=== PATIENT | male | born 1955 | race Caucasian/White ===

== ENCOUNTER → 2017-02-01 | Outpatient (CLI) | payer OTHER ==
[~2017-02-01] MED LIST: ASCA500 PO; LEVO125T7 PO; LISI20TA3 PO; LISI20TA55 PO; MULT-506 PO; PANT40TA PO; VITAMIN B COMPLEX PO
--- NOTE | 2017-02-01 18:21 | DIAGNOSTIC IMAGING REPORT ---
CT SCAN OF THE ABDOMEN AND PELVIS WITHOUT IV CONTRAST CLINICAL HISTORY: Lower abdominal pain. COMPARISON STUDY: Abdominal CT dated 07/10/2010. TECHNIQUE: CT scan of the abdomen and pelvis is performed from the lung bases to the proximal femora. Images are reviewed in the axial, sagittal, and coronal planes. IV contrast was not administered for this examination as per the referring clinician. Note that the examination was performed in suboptimal fashion without IV contrast. Oral contrast was utilized. Automated dose control exposure was utilized. CT DOSE: 767.48 mGy.cm FINDINGS: Lung bases: The heart is normal in size and without pericardial effusion. The lung bases are clear. Liver: The unenhanced liver is mildly enlarged measuring 18.5 cm in length. The Liver demonstrates diffusely diminished attenuation consistent with mild hepatic steatosis. Fatty sparing is seen adjacent to gallbladder fossa. There is no intrahepatic biliary ductal dilatation. Gallbladder: Unremarkable. Spleen: Normal in size and attenuation. Pancreas: Moderately atrophic and grossly unremarkable. Adrenal glands: Unremarkable. Kidneys: The unenhanced kidneys demonstrate mild cortical atrophy and are without hydronephrosis. There are no renal calculi identified. There is no evidence of contour deforming renal mass lesion. Abdominal vasculature: The abdominal aorta is normal in course and caliber noting scattered foci of atherosclerotic calcification. Bowel: Findings are consistent with previous sigmoid colon resection with colocolonic anastomosis. No bowel obstruction is seen. There is moderate diverticulosis of the remaining left colon. There is wall thickening with associated pericolonic inflammation and fluid involving the distal descending/proximal sigmoid colon consistent with acute diverticulitis. No evidence of abscess is seen on this unenhanced examination. The appendix is not identified and reported surgically absent. Peritoneum: There is no intraperitoneal free air or abdominal ascites. There is a fat-containing umbilical hernia. Lymphadenopathy: None. Pelvic viscera: The bladder, prostate, and seminal vesicles are normal as visualized. Skeletal structures: No lytic or blastic lesions are seen. IMPRESSION: 1. Suboptimal examination without IV contrast. 2. There is moderate diverticulosis of the remaining left colon with evidence of acute diverticulitis involving the distal descending/proximal sigmoid. No intraperitoneal free air is seen and there is no evidence of diverticular abscess. 3. There are postoperative changes consistent with partial sigmoid colon resection with colocolonic anastomosis. No bowel obstruction is identified. 4. Mild hepatomegaly and hepatic steatosis. 5. Additional findings as above. Electronically signed by: Patrick Lindsay M.D. 02/01/2017 6:20 PM Dictated Date/Time: 02/01/2017 6:13 PM
== END | disposition home or self-care (01) ==
LOC: C.CTS 15:40
PROVIDERS: ATTEND Family Medicine
DX: R10.30 Lower abdominal pain, unspecified (principal); Z90.49 Acquired absence of other specified parts of digestive tract

== ENCOUNTER → 2018-02-27 | Day surgery (SDC) | payer SELFPAY ==
[2018-02-11 13:36] VITALS: Ht 175.3 cm; Wt 95.5 kg
[~2018-02-27] VITALS: Ht 175.3 cm; Wt 95.5 kg
[~2018-02-27] MED LIST changes: -ASCA500 PO; +ATOR10TA82 PO; +LEVO125T5 PO; -LEVO125T7 PO; +OMEG10007 PO
== END | disposition home or self-care (01) ==
LOC: EDSTATUS 07:00 → C.PAT 16:22
PROVIDERS: ATTEND Orthopaedic Surgery
DX: G56.22 Lesion of ulnar nerve, left upper limb (principal); Z53.9 Procedure and treatment not carried out, unspecified reason

== ENCOUNTER 2021-03-02 05:14 | Observation (INO) ==
--- NOTE | 2021-02-06 14:21 | Anesthesiology Consultation ---
Date of Service February 06, 2021 Assessment & Plan Chart Review Chart Review: Acceptable Risk for Surgery and Patient NOT seen in Pre Admission Testing Consults Requested none History Surgery Operation Date: 03/02/21 13:55 Proposed Procedures p Right Knee Poly Exchange, Synovectomy - Johan Whalen MD Height/Weight Height: 5 ft 9 in Weight: 97.522 kg Allergies Allergy/AdvReac Type Severity Reaction Status Date / Time No Known Allergies Allergy Verified 02/06/21 11:29 Medications Home Medications Medication Instructions Recorded Confirmed Last Taken [place] 3-6-9 1 dose PO DAILY 07/31/18 02/06/21 08/20/18 05:30 amoxicillin 500 mg PO UD PRN 07/31/18 02/06/21 Unknown atorvastatin 10 mg PO PM 07/31/18 02/06/21 08/20/18 17:30 levothyroxine 125 mcg PO QAM 07/31/18 02/06/21 08/21/18 05:00 lisinopril 20 mg PO QPM 07/31/18 02/06/21 08/20/18 18:00 lisinopril-hydrochlorothiazide 1 tab PO QAM 07/31/18 02/06/21 08/20/18 05:30 multivitamin 1 tab PO QAM 07/31/18 02/06/21 08/20/18 05:30 pantoprazole 40 mg PO QAM 07/31/18 02/06/21 08/21/18 05:00 vitamin B complex 1 tab PO QAM 07/31/18 02/06/21 08/20/18 05:30 Past Medical History Medical History Borderline high cholesterol Bradycardia has followed up with kathy dumas and did cardiac work up and neg findings Diverticular disease GERD (gastroesophageal reflux disease) Hearing deficit [place] Hypertension Hypothyroidism Obesity Osteoarthritis Exercise / Class Metabolic Activity III < 4 Walking/Shop/Light housework Past Family History Family History Uncle Family history of diabetes mellitus Past Surgical History Surgical History History of appendectomy History of colectomy 14 inches removed per patient, 2/2 diverticulitis. History of colonoscopy History of surgery on arm RT History of tonsillectomy History of total knee replacement RT S/P cubital tunnel release HX RIGHT AND LEFT Past Anesthesia History No Hx of Anesthesia Complications and No Family Hx of Anesthesia Complications History of PONV No Hx of PONV and No Hx of Motion Sickness Social History Smoking Status: Never smoker tobacco type: smokeless tobacco Do You Dip or Chew Tobacco: Yes (advised) Hx Alcohol Use: Yes Alcohol type: beer alcohol intake frequency: 0-2 drinks per day Hx Substance Use: No substance use type: does not use Testing Electrocardiogram Date: 11/30/20 Findings: + SB @ (at 46) Echocardiogram Date: 01/04/21 EF: 60% LV Function: normal RWMA: + none Other Findings: + LVH (mild) and + diastolic dysfunction (grade 1) Valvular Disease: + no significant valvular disease, + MR (mild) and + pertinent finding (mild TR) Stress Test Type: nuclear (lexiscan) Findings: + WNL
--- NOTE | 2021-03-01 20:30 | History & Physical Report ---
Date of Service March 01, 2021 Assessment & Plan (1) Instability of right knee joint: Plan: Right knee pain and instability due to a fractured polyethylene post. Treatment options discussed and patient would like to proceed with surgical intervention. Risks, benefits and alternatives to surgery including but not limited to infection, DVT, pain, stiffness, need for revision surgery, damage to blood vessels, damage to nerves, PE, , were discussed with the patient and they wish to proceed. Plan on right total knee poly exchange at [facility] on 03/02/21. Will plan on ASA 81mg BID x 1 mo post op for DVT prophylaxis, as well as outpatient PT post discharge. All questions answered. F/u post op. History of Present Illness Chief Complaint: Right knee pain Primary Care Provider: Marleen Blas, DO 65 year old male with PMHx significant for HTN, bradycardia, GERD, hypothyroidism who presents with right knee pain and instability since suffering a fall. He is about 10 years s/p right total knee arthroplasty. Exam consistent with a fracture polyethylene post. He would like to proceed with surgical intervention. Patient denies headaches, sweats, fevers, chills, double vision, blurred vision, cough, sore throat, dysphagia, chest pain, sob, wheezing, n/v/d/c, numbness, tingling, fatigue, urinary symptoms, mood disorders. ROS positive for right knee pain and stiffness. Allergies Allergy/AdvReac Type Severity Reaction Status Date / Time No Known Allergies Allergy Verified 02/06/21 11:29 Home Medications Medication Instructions Recorded Confirmed Type amoxicillin 500 mg tablet 500 mg PO UD PRN 07/31/18 02/06/21 History atorvastatin 10 mg tablet 10 mg PO PM 07/31/18 02/06/21 History fish, borage, flaxseed oils-omega 1 dose PO DAILY 07/31/18 02/06/21 History 3,6,9 comb no.1 1,200 mg capsule ([place] 3-6-9) levothyroxine 125 mcg tablet 125 mcg PO QAM 07/31/18 02/06/21 History lisinopril 20 mg tablet 20 mg PO QPM 07/31/18 02/06/21 History lisinopril 20 1 tab PO QAM 07/31/18 02/06/21 History mg-hydrochlorothiazide 25 mg tablet multivitamin 1 tab PO QAM 07/31/18 02/06/21 History pantoprazole 40 mg tablet,delayed 40 mg PO QAM 07/31/18 02/06/21 History release vitamin B complex 1 tab PO QAM 07/31/18 02/06/21 History Past Med/Surg History Medical History Borderline high cholesterol Bradycardia has followed up with kathy dumas and did cardiac work up and neg findings Diverticular disease GERD (gastroesophageal reflux disease) Hearing deficit [place] Hypertension Hypothyroidism Obesity Osteoarthritis Surgical History History of appendectomy History of colectomy 14 inches removed per patient, 2/2 diverticulitis. History of colonoscopy History of surgery on arm RT History of tonsillectomy History of total knee replacement RT S/P cubital tunnel release HX RIGHT AND LEFT Family History Uncle Family history of diabetes mellitus Social History Smoking Status: Never smoker Second Hand Exposure: No; Hx Alcohol Use: Yes Alcohol type: beer Hx Substance Use: No Preferred Language: Uzbek Communication Ability: Effective Defense Attorney Required: No Beliefs That Will Affect Care: None Current Living Situation: Spouse and Family Feels Safe at Home: Yes Assistive Devices: Glasses Review of Systems All systems reviewed & are unremarkable except as noted in HPI & below Physical Exam Constitutional: well developed and well nourished; no acute distress Eyes: PERRL, conjunctivae normal, anicteric sclerae ENMT: external ear and nose normal, oropharynx normal Neck: trachea midline, no thyromegaly Respiratory: normal respiratory effort, lungs clear to auscultation Cardiovascular: RRR, no murmur, no edema Musculoskeletal: Right knee: Moderate effusion. Mild laxity with valgus and varus stress, positive posterior drawer. ROM 0-120. When knee flexed past 110 degrees there is a visible and palpable clunk in the knee and again with extension consistent with fractured post and posterior knee instability. Skin: no rashes, warm and dry Neurologic: patellar DTR's 2+ bilat, sensation intact Psychiatric: A+Ox3, euthymic affect Results & Data ([facility]) Diagnostic Findings Right knee radiographs: 3 views right knee including AP, lateral, and patellar x-rays reviewed and shows total knee which appears well aligned and well fixed. There may be some lateral patellar wear on the patellar x-ray
[2021-03-02] MEDS ORDERED: METOCLOPRAMIDE HCL 10 MG TABLET PO SCH (06:00)
[2021-03-02] MEDS ORDERED: dexAMETHasone 4 MG TAB PO SCH (06:00)
[2021-03-02] MEDS ORDERED: ceFAZolin 2000MG 2,000 MG/15 ML SYR IV SCH (06:00)
[2021-03-02] MEDS ORDERED: CeleBREX 200 MG CAP PO SCH ×2 (06:00→21:00)
[2021-03-02] MEDS ORDERED: TRANEXAMIC ACID 1,000 MG **IV Pre-op IV SCH (06:00)
[2021-03-02] MEDS ORDERED: FAMOTIDINE 20 MG TAB PO SCH (06:00)
[2021-03-02] MEDS ORDERED: TRANEXAMIC ACID 1,000 MG **IV Intra-op IV SCH (06:00)
[2021-03-02] MEDS ORDERED: GABAPENTIN 600 MG DOSE PO SCH (06:00)
[2021-03-02] MEDS ORDERED: ROPIVACAINE 0.5% HCL/PF 150 MG, BUPIVACAINE 0.75% MPF 20 ML, EPINEPHrine 30MG/30ML (OR ... INFIL SCH (06:00)
[2021-03-02] MEDS ORDERED: ACETAMINOPHEN 500 MG TAB PO SCH (06:00)
[2021-03-02] MEDS ORDERED: ROPIVACAINE 0.5% 5 MG/ML 30 ML VIAL ONE (06:19)
[2021-03-02] MEDS ORDERED: BUPIVACAINE 0.5 % 5 MG/1 ML PF 10ML VIAL ONE (06:19)
[2021-03-02] MEDS ORDERED: EPINEPHrine INJ 1 MG/ML AMP ONE (06:19)
[2021-03-02] MEDS ORDERED: MIDAZOLAM HCL 1 MG/ML 2ML VIAL ONE (06:37)
[2021-03-02] MEDS ORDERED: fentaNYL citrate 100 MCG/2 ML VIAL ONE (06:37)
--- NOTE | 2021-03-02 06:45 | History & Physical Bridge Note ---
Date of Service March 02, 2021 History & Physical Bridge Note I have examined the patient, reviewed the History & Physical and in the interval since the performance of the History & Physical I have noted the following changes of clinical significance: no changes noted
[2021-03-02] MEDS ORDERED: PROPOFOL IV EMULSION 10 MG/ML 20 ML VIAL IV ONE (07:14)
[2021-03-02] MEDS ORDERED: ONDANSETRON INJ 2 MG/ML 2 ML VIAL ONE (07:14)
[2021-03-02] MEDS ORDERED: LIDOCAINE 2% 2 ML VIAL/AMP(20MG/ML) INFIL ONE (07:14)
[2021-03-02] MEDS ORDERED: KETAMINE 50 MG/5 ML SYRINGE ONE (07:16)
[2021-03-02] MEDS ORDERED: ORTHO JOINT ANESTHETIC ONE (07:26)
[2021-03-02] MEDS ORDERED: PHENYLEPHRINE 100MCG/ML 5ML SYR IV PRN (07:45)
[2021-03-02] MEDS ORDERED: ONDANSETRON INJ 2 MG/ML 2 ML VIAL IV PRN ×2 (07:45→09:59)
[2021-03-02] MEDS ORDERED: ATROPINE SULFATE 0.1 MG/ML 10ML SYR IV PRN (07:45)
[2021-03-02] MEDS ORDERED: ePHEDrine sulfate 50 MG/ML AMP IV PRN (07:45)
[2021-03-02] MEDS ORDERED: LABETALOL HCL IV 5 MG/ML 20ML IV PRN (07:45)
[2021-03-02] MEDS ORDERED: fentaNYL citrate 100 MCG/2 ML VIAL IV PRN (07:45)
--- NOTE | 2021-03-02 08:27 | Post Operative Brief Note ---
Immediate Post Op Note v1 Date of Surgery March 02, 2021 Pre & Post Diagnosis Operation Date: 03/02/21 07:00 Pre-Op Diagnosis: Instability of Right Knee Joint status post right total knee replacement with fracture of polyethylene post and chronic synovitis Post-Op Diagnosis: Instability right knee joint status post right total knee replacement with fracture polyethylene post and chronic synovitis with Heterotopic bone around right patella. I identified the patient and participated in the time-out.: Yes Procedure Operation Date: 03/02/21 07:00 Actual Procedures p Right Knee Poly Exchange tibial component, electrocautery synovectomy, excision heterotopic bone around patella- Johan Whalen MD Surgeon Johan Whalen MD Speed Winder Brandon WATKINS Estimated Blood Loss 5 Findings Consistent with Post-Op Diagnosis Specimens Polyethylene post with fracture tibial polyethylene component Drains Hemovac Drain Anesthesia Type MAC Spinal Regional Complications none Disposition Accompanied Patient To Recovery: No Disposition: Recovery Room Overlapping Procedure I was immediately available: during the entire case.
--- NOTE | 2021-03-02 09:08 | XRay Report ---
XR knee RT 1 or 2V routine HISTORY: 65 years-old Male Surgical Post Op right knee total joint arthroplasty COMPARISON: None TECHNIQUE: 2 views of the right knee FINDINGS: Right knee total joint arthroplasty and patella resurfacing. Surgical drainage catheters noted along with expected postoperative soft tissue swelling and deep tissue air with anterior midline skin stapl es. No unexpected opaque foreign bodies. No acute fracture. IMPRESSION: Right knee total joint arthroplasty and patella resurfacing with expected postoperative c hanges. ACT 112: Negative or not required by law. The above report was generated using voice recognition software. It may contain grammatical, syntax o r spelling errors. Electronically signed by: Gigi Bowles M.D. 03/02/2021 9:07 AM
--- NOTE | 2021-03-02 09:24 | Anesthesiology Progress Note ---
Date of Service March 02, 2021 Anesthesia Post Procedure Vital Signs Vital Signs: Temp Pulse Pulse Resp BP BP Pulse Ox 03/02/21 09:15 46 L 16 105/67 95 03/02/21 09:05 36.3 C L 45 L 16 112/66 95 03/02/21 08:55 48 L 16 111/64 95 03/02/21 08:45 36.2 C L 48 L 16 105/59 L 96 03/02/21 05:32 36.6 C 51 L 18 173/102 H 96 Transfer of Care Handoff Completed per policy Notes Mental Status: alert / awake / arousable Patient Amnestic to Procedure: Yes Nausea / Vomiting: adequately controlled Pain: adequately controlled Airway Patency, RR, SpO2: stable & adequate BP & HR: stable & adequate Hydration State: stable & adequate Neuraxial Anesthesia: was administered and sensory block is resolving Anesthetic Complications: no major complications apparent and Pt Satisfied with anesthetic care
[2021-03-02] MEDS ORDERED: NALOXONE HCL 0.4 MG/1 ML VIAL/CARP IV PRN (09:59)
[2021-03-02] MEDS ORDERED: bisacodyL 10 MG SUPP PR PRN (09:59)
[2021-03-02] MEDS ORDERED: MULTIVITAMIN TAB PO SCH (09:59)
[2021-03-02] MEDS ORDERED: TAMSULOSIN HCL 0.4 MG CAP PO PRN (09:59)
[2021-03-02] MEDS ORDERED: oxyCODONE HCL IR 5 MG TAB (IMMEDIATE RELEASE) PO PRN (09:59)
[2021-03-02] MEDS ORDERED: METOCLOPRAMIDE HCL INJ 5 MG/ML 2 ML VIAL IV PRN (09:59)
[2021-03-02] MEDS ORDERED: LISINOPRIL/HCTZ 20/25MG 1 TAB PO SCH (09:59)
[2021-03-02] MEDS ORDERED: MAGNESIUM HYDROXIDE SUSP 30 ML UDC PO PRN (09:59)
[2021-03-02] MEDS ORDERED: HYDROmorphone INJ 0.5 MG/0.5 ML SYR IV PRN (09:59)
--- NOTE | 2021-03-02 10:27 | Operative Report (OR) ---
DATE OF PROCEDURE: 03/02/2021 INDICATIONS FOR THE PROCEDURE: The patient is a 65-year-old male who had a index right total knee re placement 10 years ago. He did well for many years and then developed instability in his knee recent ly with swelling and pain. His exam is consistent with a fracture of the polyethylene post. Serum m arkers are negative for any signs of infection. Radiographs demonstrate a well-aligned Goff and BMdr hew Journey I total knee replacement with no evidence of any loosening. PREOPERATIVE DIAGNOSIS: Fractured polyethylene post, status post right knee replacement with chronic synovitis and instability. POSTOPERATIVE DIAGNOSIS: Fractured polyethylene post, status post right knee replacement with chroni c synovitis and instability including heterotopic bone around the patella. PROCEDURE: Right knee tibial polyethylene exchange of a total knee replacement including electrocaut dariela synovectomy and excision of heterotopic bone around the patella, application of superficial wound VAC. SURGEON: Johan Whalen MD. FRENCH INSTRUCTOR: Ephraim Bain PA-C. ANESTHESIA: Spinal MAC regional. DRAINS: 2 Hemovacs. ESTIMATED BLOOD LOSS: 5 mL. COMPLICATIONS: None. DESCRIPTION OF OPERATIVE PROCEDURE: The patient was taken to the operating room, anesthetized under spinal MAC regional anesthetic. Pneumatic tourniquet was placed on his right upper thigh. Right low er extremity was prepped and draped in sterile fashion. Right knee exam demonstrated he had a large effusion, no erythema, no increased warmth, no signs of infection. He had hyperextension of the knee , varus/valgus instability with stress, full range of motion and instability of the post with posteri or stress. Right lower extremity was prepped and draped with ChloraPrep. Leg was elevated, exsangui nated with an Esmarch bandage, pneumatic tourniquet was raised to 325 mmHg. Incision was made anteriorly through his old scar. Skin was incised sharply. Subcutaneous flaps wer e elevated. Incision was made through the medial retinaculum, carried up into the mid third of quadr iceps tendon and down to the medial tibial tubercle. There was a benign-appearing effusion that was evacuated. Intra-articular findings demonstrated that the polyethylene post was fractured. The frag ment was scarred in the superior lateral suprapatellar pouch area of the knee toward the lateral gutt er area. The polyethylene itself had some moderate wear. Patella had mild polyethylene wear, it was stable and intact. The metal components were all intact. They were all stable. There was chronic synovitis in the knee. No signs of infection. The tip of the polyethylene post wa s removed. Then, I did an electrocautery synovectomy removing the thickened and inflamed synovium in both the gutters and suprapatellar pouch area. Then, we gained exposure to the knee with appropriat e retractors in place and then removed the tibial polyethylene uneventfully. This gave us a little m ore exposure to remove some scar tissue in the lateral gutter area and excised the scarred patellar f at pad and then everted the patella, and there was some heterotopic bone around the patella superiorl y and laterally and some of the lateral bone of the patella that was lateral was bevelled off to prev ent any impingement on the femoral condyle and the heterotopic bone was resected with a rongeur. After this was completed, I did a trial reduction and the 11 insert, which was upsized 2 sizes from t he original 9, gave stability in full range of motion. There was no hyperextension. Trial polyethyl daljit was removed. Betadine soak was performed. Then, the knee was copiously irrigated again with pul sed saline solution. Then, the Journey II right size 11 revision tibial polyethylene for a size 7 ti bial implant was inserted with the insertion device. After further irrigation, 2 Hemovac drains were brought out laterally. We did inject Orthomix cocktail through the soft tissues and capsular tissue s prior to placement of the implant. We did irrigate after Orthomix was placed. The quadriceps tendon and medial retinaculum were then closed with interrupted [id number] #1 Bertrand ryl sutures. Knee was taken through full range of motion, repair was secure. The patient had 0 thro ugh 135 degrees range of motion. There is no instability. The subcutaneous tissues were closed with interrupted 2-0 Vicryl suture, skin closed with irvin and a JULIAN and Acticoat superficial wound VA C was applied. Ephraim Bain was my certified surgical first assistant. His functions were significant throughout the procedure. He assisted in soft tissue retraction, leg positioning and instrument management during the procedure willa marmolejo performed the subcutaneous and skin closure, application of superficial wound VAC and will particip ate in the postoperative care of the patient. Job ID: [id number]
--- NOTE | 2021-03-02 10:52 | Hospitalist Consultation ---
Date of Consultation March 02, 2021 Assessment & Plan (1) S/P right knee surgery: This is a 65 yo M with a PMH of HTN, bradycardia, hypothyroidism, h/o NSVT on monitor and other medical problems listed below who is POD #0 s/p Right knee tibial polyethylene exchange of a total knee replacement by Dr. Whalen. POD #0 s/p Right knee tibial polyethylene exchange of a total knee replacement by Dr. Whalen Per ortho for pain control, wound care, anticoagulation and activities Monitor H&H, continue incentive spirometry, PT/OT when appropriate (2) Hypertension: Normotensive Plan to continue lisinopril 20mg BID, hold HCTZ tomorrow AM until volume status and lab work reassessed (3) Bradycardia: Asymptomatic - following with [facility] (4) NSVT (nonsustained ventricular tachycardia): Recent Zio monitor results showed asymptomatic V-tach runs with longest being 9 beats, appearing to be wide complex with aberrancy as outpatient - asymptomatic Following with [id number] [facility] HR 52, asymptomatic post-operatively Continue to monitor (5) Hypothyroidism: Continue levothyroxine PCP: [facility] Dispo: Per primary service Patient seen in collaboration with Dr. Fuchs. Please see addendum. Supervising Physician Co-Signing Physician Notes I saw this patient with the physician library services assistant, I participated in the history, physical, review of systems, and physical exam on this consult. I reviewed the medications with the patient and the physician library services assistant and helped reconcile the medications. I helped take a detailed family and social history as well. I formulated the assessment and plan personally with the physician library services assistant and went over it with the patient. ROS-No Headache, No Visual Changes, No Nausea, No Vomiting, No Fever, No Chills, No Neck Pain or Stiffness, No Chest Pain, No Palpitations, No SOB, No YORK, No Cough, No Sputum, No Wheezing, No Abdominal Pain, No Diarrhea, No Hematemesis, No Hemoptysis, No Unexpected Weight Loss, No Flank pain, No Melena, No Hematochezia, No Frequency, No Urgency, No Burning, No Hematuria, No Rashes, No Diaphoresis. Appetite is Normal, Sore R Knee Physical Exam Gen-AAO x 3, NAD, Afebrile Head-NCAT, EOMI, PERRLA, Anicteric Sclera, No Posterior Pharyngeal Erythema Neck-Supple, No JVD, No Thyromegaly, No Masses, No LAD, No Bruits Lungs-Clear to Auscultation Bilaterally, No Rales, No Rhonchi, No Wheezing, No Crepitus Chest-No S4, +S1, +S2, No S3, No Murmurs, No Rubs, No Gallops, No Ectopy Abdomen-Soft, Bowel Sounds Present, Non Tender, Non Distended, No Hepatomegaly, No Splenomegaly, No Palpable Masses, No Rebound, No Rigidity, No Guarding Musculoskeletal-No CVAT Extremities-No Cyanosis, No Clubbing, No Edema, Ice Pack R Knee Nuero-Cranial Nerves II-XII grossly intact, Motor WNL, DTRs WNL, Strength WNL, Non Focal Psych-Normal Mood History of Present Illness Reason for Consultation: post op med mgmt Attending Physician: Johan Whalen MD History of Present Illness This is a 65 yo M with a PMH of HTN, bradycardia, hypothyroidism, h/o NSVT on monitor and other medical problems listed below who is POD #0 s/p Right knee tibial polyethylene exchange of a total knee replacement by Dr. Whalen. Patient is feeling well postoperatively. Denies any right knee pain due to effect of remaining anesthesia. Denies any fever, chills, lightheadedness, headache, chest pain, shortness of breath, nausea, vomiting, abdominal pain. Has been resting comfortably since surgery. Has not eaten yet. Has not urinated postoperatively. Is taking all medications as scheduled. PCP is Dr. Blas of [facility]. Also underwent cardiac preop clearance prior to surgery for history of asymptomatic bradycardia. Zio monitor results showed asymptomatic V-tach runs with longest being 9 beats, appearing to be wide complex with aberrancy. Underwent nuclear stress test negative for inducible ischemia. Echo revealed normal wall motion with EF of 60 to 64%. Allergies Allergy/AdvReac Type Severity Reaction Status Date / Time No Known Allergies Allergy Verified 02/06/21 11:29 Home Medications Medication Instructions Recorded Confirmed Type amoxicillin 500 mg tablet 500 mg PO UD PRN 07/31/18 03/02/21 History atorvastatin 10 mg tablet 10 mg PO PM 07/31/18 03/02/21 History fish, borage, flaxseed oils-omega 1 dose PO DAILY 07/31/18 03/02/21 History 3,6,9 comb no.1 1,200 mg capsule ([place] 3-6-9) levothyroxine 125 mcg tablet 125 mcg PO QAM 07/31/18 03/02/21 History lisinopril 20 mg tablet 20 mg PO QPM 07/31/18 03/02/21 History lisinopril 20 1 tab PO QAM 07/31/18 03/02/21 History mg-hydrochlorothiazide 25 mg tablet multivitamin 1 tab PO QAM 07/31/18 03/02/21 History pantoprazole 40 mg tablet,delayed 40 mg PO QAM 07/31/18 03/02/21 History release vitamin B complex 1 tab PO QAM 07/31/18 03/02/21 History Patient History Medical History Borderline high cholesterol Bradycardia has followed up with kathy dumas and did cardiac work up and neg findings Diverticular disease GERD (gastroesophageal reflux disease) Hearing deficit [place] Hypertension Hypothyroidism NSVT (nonsustained ventricular tachycardia) on OP monitor, asymptomatic Obesity Osteoarthritis Surgical History History of appendectomy History of colectomy 14 inches removed per patient, 2/2 diverticulitis. 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 Physical Exam Physical Exam: General Appearance: WD/WN, vitals as above, NAD, sitting up in bed, pleasant, conversing easily Head: normocephalic, atraumatic Eyes: normal inspection, PERRL, conjunctivae normal, anicteric sclerae ENT: external ear and nose normal, oropharynx normal Neck: normal visual inspection, trachea midline, no thyromegaly Respiratory: normal respiratory effort, lungs clear to auscultation, no wheeze, rales, rhonchi. No accessory muscle use Cardiovascular: regular rate, rhythm, no murmur, normal peripheral pulses, no BLE edema. Vessels: no JVD Chest: normal inspection of chest Abdomen/GI: normal bowel sounds, soft, nontender, no hepatosplenomegaly Extremities/Musculoskeletal: R knee with surgical dressing c/d/i. Drains visualized. No cyanosis or clubbing, extremities motor strength 5/5 Neurologic: PERRL, EOMI, accommodation nl, no face palsy, no dysarthria, CN's II-XI intact bilaterally and moves all extremities Psychiatric: A+Ox3, euthymic affect Skin: no rashes, normal color, warm/dry Results & Data Results & Data ([facility]) Vital Signs (Past 12 Hours) Vital Signs Temp Pulse Pulse Resp BP BP Pulse Ox 03/02/21 10:40 47 L 16 141/94 H 99 03/02/21 10:06 36.3 C L 46 L 16 133/89 93 03/02/21 09:35 36.3 C L 42 L 16 133/83 95 03/02/21 09:15 46 L 16 105/67 95 03/02/21 09:05 36.3 C L 45 L 16 112/66 95 03/02/21 08:55 48 L 16 111/64 95 03/02/21 08:45 36.2 C L 48 L 16 105/59 L 96 03/02/21 05:32 36.6 C 51 L 18 173/102 H 96 Diagnostic Findings Knee X-Ray 03/02/21 08:49 XR knee RT 1 or 2V routine HISTORY: 65 years-old Male Surgical Post Op right knee total joint arthroplasty COMPARISON: None TECHNIQUE: 2 views of the right knee FINDINGS: Right knee total joint arthroplasty and patella resurfacing. Surgical drainage catheters noted along with expected postoperative soft tissue swelling and deep tissue air with anterior midline skin irvin. No unexpected opaque foreign bodies. No acute fracture. IMPRESSION: Right knee total joint arthroplasty and patella resurfacing with expected postoperative changes. ACT 112: Negative or not required by law. The above report was generated using voice recognition software. It may contain grammatical, syntax or spelling errors. Electronically signed by: Gigi Bowles M.D. 03/02/2021 9:07 AM
[2021-03-02] MEDS: SODIUM CHLORIDE 0.9% 1000ML 1,000 ML IV SCH ×2 (13:15→20:23)
[2021-03-02] MEDS: PANTOprazole 40 MG TAB PO SCH (13:16)
[2021-03-02] MEDS: CeleBREX 200 MG CAP PO SCH ×2 (13:16→20:22)
[2021-03-02] MEDS: VITAMIN B COMPLEX TAB PO SCH (13:16)
[2021-03-02] MEDS: MULTIVITAMIN TAB PO SCH (13:16)
[2021-03-02] MEDS: ASPIRIN 81 MG ECTAB PO SCH ×2 (13:16→20:22)
[2021-03-02] MEDS: DOCUSATE SODIUM 100 MG CAP PO SCH ×2 (13:16→20:22)
[2021-03-02] MEDS: ACETAMINOPHEN 500 MG TAB PO SCH ×2 (13:16→23:03)
[2021-03-02] MEDS: ceFAZolin 2000MG 2,000 MG/15 ML SYR IV SCH ×2 (16:06→23:03)
[2021-03-02] MEDS: lisinopril 20 MG TAB PO SCH (20:22)
[2021-03-02] MEDS ORDERED: SENNA 8.6 MG TAB PO SCH (21:00)
[2021-03-02] MEDS ORDERED: ATORVASTATIN 10 MG TAB PO SCH (21:00)
[2021-03-03] MEDS: SODIUM CHLORIDE 0.9% 1000ML 1,000 ML IV SCH (05:53)
[2021-03-03] MEDS: ACETAMINOPHEN 500 MG TAB PO SCH (05:53)
[2021-03-03] MEDS ORDERED: LEVOTHYROXINE SODIUM 125 MCG TABLET PO SCH (06:30)
[2021-03-03 06:38] LABS: Hematocrit (blood only) 36.8 % (42-52); Hemoglobin 12.9 g/dL (14.0-18.0); Mean Corpuscular Hemoglobin 30.6 pg (25-34); Mean Corpuscular Hgb Conc 35.1 g/dL (32-36); Mean Corpuscular Volume 87.2 fL (80-100); Platelet Count 247 K/uL (130-400); RDW Coefficient of Variation 13.1 % (11.5-14.5); RDW Standard Deviation 42.1 fL (36.4-46.3); Red Blood Count 4.22 M/uL (4.7-6.1); White Blood Count 17.26 K/uL (4.8-10.8)
[2021-03-03 07:10] LABS: BUN Creatinine Ratio 19.2 (10-20); Calcium 8.7 mg/dl (8.5-10.1); Creatinine Clr Calc Pharmacy 96.1 ml/min; Est GFR (African American) 103.6 ml/min; Est GFR (Non-African American) 89.4 ml/min; Potassium 3.8 mmol/L (3.5-5.1)
--- NOTE | 2021-03-03 07:36 | Orthopedic Progress Note ---
Date of Service March 03, 2021 Assessment & Plan (1) Instability of right knee joint: Plan: POD#1 right knee poly exchange and synovectomy -PT/OT -DVT prophylaxis-SCDs, TEDs, ASA 81mg BID -Pain management as written -AM labs-hemoglobin 12.9 from 15 preop acute blood loss anemia due to surgical loss vs dilutional effect. Leukocytosis likely reactive due to surgical stress/perioperative steroids -D/C planning-home with outpatient PT. Plan on discharge home today if PT goes well. Admission and Anticipated Discharge Date Admission Date: March 02, 2021 Subjective Patient is POD#1 right knee Poly exhchange. Doing well, pain controlled. No current complaints. Denies chest pain, sob, dizziness, fever, chills, n/v/d Review of Systems Review of Systems: All systems reviewed & are unremarkable except as noted in Subjective Physical Exam Physical Exam: Dressing to right knee is c/d/i. Hemovac and Sarah intact and functioning. No calf tenderness. Toes mobile with good calf strength. Distally n/v status and sensation intact. Constitutional: well developed and well nourished; no acute distress Results & Data ([facility]) Vital Signs (Past 12 Hours) Vital Signs Temp Pulse Resp BP BP Pulse Ox 03/03/21 03:02 36.4 C L 57 L 16 130/79 96 03/02/21 22:21 36.6 C 57 L 16 142/81 H 96 03/02/21 20:25 36.6 C 54 L 18 96 03/02/21 20:18 144/87 H
[2021-03-03] MEDS: PANTOprazole 40 MG TAB PO SCH (08:44)
[2021-03-03] MEDS: VITAMIN B COMPLEX TAB PO SCH (08:44)
[2021-03-03] MEDS: CeleBREX 200 MG CAP PO SCH (08:45)
[2021-03-03] MEDS: MULTIVITAMIN TAB PO SCH (08:45)
[2021-03-03] MEDS: ASPIRIN 81 MG ECTAB PO SCH (08:45)
[2021-03-03] MEDS: DOCUSATE SODIUM 100 MG CAP PO SCH (08:45)
[2021-03-03] MEDS: lisinopril 20 MG TAB PO SCH (08:45)
[2021-03-03] MEDS ORDERED: lisinopril 20 MG TAB PO SCH (21:00)
--- NOTE | 2021-03-04 22:05 | Discharge Summary ---
Date of Service March 04, 2021 Admission HPI Per Admitting Provider 65 year old male with PMHx significant for HTN, bradycardia, GERD, hypothyroidism who presents with right knee pain and instability since suffering a fall. He is about 10 years s/p right total knee arthroplasty. Exam consistent with a fracture polyethylene post. He would like to proceed with surgical intervention. Patient denies headaches, sweats, fevers, chills, double vision, blurred vision, cough, sore throat, dysphagia, chest pain, sob, wheezing, n/v/d/c, numbness, tingling, fatigue, urinary symptoms, mood disorders. ROS positive for right knee pain and stiffness. Admission Exam Per Admitting Provider Constitutional: well developed and well nourished; no acute distress Eyes: PERRL, conjunctivae normal, anicteric sclerae ENMT: external ear and nose normal, oropharynx normal Neck: trachea midline, no thyromegaly Respiratory: normal respiratory effort, lungs clear to auscultation Cardiovascular: RRR, no murmur, no edema Musculoskeletal: Right knee: Moderate effusion. Mild laxity with valgus and varus stress, positive posterior drawer. ROM 0-120. When knee flexed past 110 degrees there is a visible and palpable clunk in the knee and again with extension consistent with fractured post and posterior knee instability. Skin: no rashes, warm and dry Neurologic: patellar DTR's 2+ bilat, sensation intact Psychiatric: A+Ox3, euthymic affect Principal Diagnosis right knee polyethylene post fracture Discharge Exam Constitutional well developed and well nourished; no acute distress Eyes PERRL, conjunctivae normal, anicteric sclerae ENMT external ear and nose normal, oropharynx normal Neck trachea midline, no thyromegaly Respiratory normal respiratory effort, lungs clear to auscultation Cardiovascular RRR, no murmur, no edema Skin no rashes, warm and dry Neurologic patellar DTR's 2+ bilat, sensation intact Psychiatric A+Ox3, euthymic affect Discharge Data Allergies Allergy/AdvReac Type Severity Reaction Status Date / Time No Known Allergies Allergy Verified 02/06/21 11:29 Consultations Hospitalist Procedures Performed Operation Date: 03/02/21 07:00 Actual Procedures p Right Knee Poly Exchange, Synovectomy(Right) - Johan Whalen MD Ordered Studies 03/02/21 05:00 US - OR guided needle placemen Routine Hospital Course (1) Instability of right knee joint: Patient presented for same day admission following right knee poly exchange and synovectomy on 03/02/21. He tolerated procedure well. The Patient had an uneventful hospital course. Post-operatively, his activity was progressed and well tolerated. They participated in PT with ambulation distance of 75 feet x 2. ROM of operative knee reached 100 degrees. Labs remained stable- lowest hemoglobin recorded: 12.9. Dr. Gene Fuchs of medical service was consulted for medical management during admission. Pain controlled on oral medications. Please refer to daily progress notes and PT notes for complete details. After exam on 03/03/21, patient was felt to be stable for discharge home with outpatient PT. Patient will f/u in the office in about 2 weeks for further evaluation including x-rays and incision check, sooner if having any issues or concerns. POD#1 right knee poly exchange and synovectomy -PT/OT -DVT prophylaxis-SCDs, TEDs, ASA 81mg BID -Pain management as written -AM labs-hemoglobin 12.9 from 15 preop acute blood loss anemia due to surgical loss vs dilutional effect. Leukocytosis likely reactive due to surgical stress/perioperative steroids -D/C planning-home with outpatient PT. Plan on discharge home today if PT goes well. Lab Results 03/02/21 03/02/21 03/02/21 Range/Units 05:43 06:02 06:02 WBC (4.8-10.8) K/uL RBC (4.7-6.1) M/uL Hgb (14.0-18.0) g/dL Hct (42-52) % MCV (80-100) fL MCH (25-34) pg MCHC (32-36) g/dL RDW Std Deviation (36.4-46.3) fL RDW Coeff of Jing (11.5-14.5) % Plt Count (130-400) K/uL MPV (7.4-10.4) fL Sodium (136-145) mmol/L Potassium (3.5-5.1) mmol/L Chloride (98-107) mmol/L Carbon Dioxide (21-32) mmol/L Anion Gap (3-11) BUN (7-18) mg/dl Creatinine (0.6-1.4) mg/dl Est Cr Clr Drug Dosing ml/min Est GFR ( Amer) ml/min Est GFR (Non-Af Amer) ml/min BUN/Creatinine Ratio (10-20) Glucose (70-99) mg/dl Calcium (8.5-10.1) mg/dl COVID-19 Eval Order Covid19 IDNow [facility] SARS-CoV-2, RNA, NAAT NEGATIVE (NEGATIVE) Blood Type O Positive Antibody Screen NEGATIVE 03/03/21 03/03/21 Range/Units 06:19 06:19 WBC 17.26 H (4.8-10.8) K/uL RBC 4.22 L (4.7-6.1) M/uL Hgb 12.9 L (14.0-18.0) g/dL Hct 36.8 L (42-52) % MCV 87.2 (80-100) fL MCH 30.6 (25-34) pg MCHC 35.1 (32-36) g/dL RDW Std Deviation 42.1 (36.4-46.3) fL RDW Coeff of Jing 13.1 (11.5-14.5) % Plt Count 247 (130-400) K/uL MPV 10.0 (7.4-10.4) fL Sodium 137 (136-145) mmol/L Potassium 3.8 (3.5-5.1) mmol/L Chloride 105 (98-107) mmol/L Carbon Dioxide 29 (21-32) mmol/L Anion Gap 3.0 (3-11) BUN 18 (7-18) mg/dl Creatinine 0.91 (0.6-1.4) mg/dl Est Cr Clr Drug Dosing 96.1 ml/min Est GFR ( Amer) 103.6 ml/min Est GFR (Non-Af Amer) 89.4 ml/min BUN/Creatinine Ratio 19.2 (10-20) Glucose 175 H (70-99) mg/dl Calcium 8.7 (8.5-10.1) mg/dl COVID-19 Eval Order SARS-CoV-2, RNA, NAAT (NEGATIVE) Blood Type Antibody Screen Total Time Total Time Spent Total Time Spent (In Minutes): 20 Discharge Plan Discharge Items Patient Disposition: Home - Self-Care Reason For Visit: RIGHT KNEE FRACTURE Discharge Diagnosis: Right knee polyethylene post fracture Activity: Per Instructions section Non-emergency contact: Surgeon Call non-emergency contact if: you have any medication questions, your pain is worsening, your pain is unusual for you, your pain is concerning for you, you have a fever, your temperature is above 101, your wound has increased redness and your wound has increased drainage Follow-up/Referrals: Marleen Blas DO [Primary Care Provider] - Diet: Regular Addtl Attending Provider Instructions: ACTIVITY RECOMMENDATIONS: SELF CARE INSTRUCTIONS AFTER TOTAL KNEE REPLACEMENT A. You may need to continue a physical therapy program after discharge from the hospital. There are several options available to you. Your doctor will assist you in selecting the best one for you. 1. An out-patient facility 2 to 3 times a week for therapy or home therapy. 2. Continue working on all exercises taught to you in the hospital. Your goals should be to increase bending of your knee to 90 degrees and beyond and to fully straighten your knee. B. You may progress at your own pace from walking with a walker or crutches to a cane; then to no assistive devices. C. Make walking a part of your daily routine. Be up as much as comfortable with rest periods throughout the day. Rest with leg elevation is very important. Use the ice wrap frequently for the first 3-4 weeks. D. There are no restrictions on activities. You may ride in a car, shop, participate in insights manager and all social activities. E. Wear the long elastic stockings (ANGÉLICA hose) 20 hours a day for 2 weeks after surgery. They can be removed several times a day for laundering and for a bath. F. You may shower, no tub baths until cleared by your doctor. SPECIAL CARE INSTRUCTIONS: VERY IMPORTANT TO READ AND REVIEW A. There are a few signs you need to watch for after you are home. Call [facility] if you notice any of the followin. Increased severe knee pain. Some pain is expected especially when you exercise. 2. Increased swelling in your leg or knee; pain or swelling of the calf muscle in either lower leg. 3. Any fluid drainage from the incision. 4. Shortness of breath or chest pain. B. Please call [facility] at if you have any concerns or questions about your operation or recovery. The doctor or his nurse will return your call promptly. C. You must take antibiotics before dental work, bladder, bowel or other surgery. Your doctor will provide you with a permanent care to carry describing this precaution. IMPORTANT: * REMEMBER TO TAKE ASPIRIN, 81 MG, TWICE DAILY FOR 4 WEEKS UNLESS OTHERWISE DIRECTED. THIS IS YOUR BLOOD THINNER. * HIGH RISK PATIENTS MAY BE PRESCRIBED A STRONGER BLOOD THINNER. THIS WILL BE PROVIDED AT DISCHARGE. * CALL IF INCREASED PAIN, REDNESS, DRAINAGE OR FEVER GREATER THAT 101. * WEAR ANGÉLICA HOSE 20 HOURS PER DAY FOR 2 WEEKS. This is a large suction dressing covering your incision. This will help pull any excess drainage from the wound and allow your incision to heal properly. You may shower with this if you can keep the unit outside of the shower. If any bleeding or leakage is noted please call your doctor's office. This will remain on your incision for 7 days and then should be removed. This can be done yourself or by the home nursing staff if applicable. The entire unit is disposable once removed. Once removed, keep incision clean and dry. If redness or drainage is noted, please call your surgeon. IF INCISION IS LEAKING THROUGH DRESSING, CALL THE OFFICE . FOLLOW UP VISIT: If appointment is not already scheduled: Please call [facility] to make a follow-up appointment for 2 weeks after your surgery at . Stand-Alone Forms: My [facility], Opioid Pain Management, Smoking Cessation Medications and DC Order Prescriptions: New acetaminophen [Tylenol Extra Strength] 500 mg Tablet 1,000 mg PO Q8 Qty: 60 RF: 0 aspirin 81 mg Tablet,Delayed Release (Dr/Ec) 81 mg PO BID Qty: 60 RF: 0 celecoxib [Celebrex] 200 mg Capsule 200 mg PO BID Qty: 60 RF: 0 oxycodone 5 mg Tablet 5 - 10 mg PO .Q4h-6h MDD 6 PRN (Reason: pain) Qty: 30 RF: 0 Continued multivitamin Tablet 1 tab PO QAM RF: 0 atorvastatin 10 mg Tablet 10 mg PO PM RF: 0 lisinopril 20 mg Tablet 20 mg PO QPM RF: 0 amoxicillin 500 mg Tablet 500 mg PO UD PRN (Reason: PRIOR TO DENTAL PROCEDURES ) RF: 0 pantoprazole 40 mg Tablet,Delayed Release (Dr/Ec) 40 mg PO QAM RF: 0 levothyroxine 125 mcg Tablet 125 mcg PO QAM RF: 0 lisinopril-hydrochlorothiazide 20-25 mg Tablet 1 tab PO QAM RF: 0 vitamin B complex Tablet 1 tab PO QAM RF: 0 Discontinued Fowler 3-6-9 1,200 mg Capsule 1 dose PO DAILY RF: 0 Discharge Orders: Discharge Order (Routine); Ordered 03/03/21 Ordered By: Ephraim Brownlee/Other Patient Handouts: DVT Post Op Prevention Admission Data Admit Date/Time: 03/02/21 08:49 Attending Provider: Johan Whalen Admit Provider: Johan Whalen Primary Care Provider: Marleen Blas Other Providers: Tano Melchor Other Interventions: Discharge Summary Assessment (RN) Last Done: 03/03/21 09:34
== END 2021-03-03 11:20 | disposition home or self-care (01) ==
LOC: PACUINP 05:14 → ASU 05:14 → 3E 09:35

== ENCOUNTER 2022-01-31 09:30 | Observation (INO) ==
--- NOTE | 2021-12-26 13:53 | PAT Medication Instructions ---
Medication Instructions Date of Service December 26, 2021 Home Medications amoxicillin 500 mg tablet 500 mg PO UD PRN atorvastatin 10 mg tablet 10 mg PO PM levothyroxine 125 mcg tablet 125 mcg PO QAM lisinopril 20 mg tablet 20 mg PO QPM lisinopril 20 mg-hydrochlorothiazide 25 mg tablet 1 tab PO QAM multivitamin 1 tab PO QAM pantoprazole 40 mg tablet,delayed release 40 mg PO QAM vitamin B complex 1 tab PO QAM Continue as directed amoxicillin 500 mg tablet 500 mg PO UD PRN(if needed) DO NOT take the morning of surgery lisinopril 20 mg-hydrochlorothiazide 25 mg tablet 1 tab PO QAM multivitamin 1 tab PO QAM vitamin B complex 1 tab PO QAM Take morning of surgery With a small sip of water, OTHERWISE NOTHING TO EAT OR DRINK AFTER MIDNIGHT: levothyroxine 125 mcg tablet 125 mcg PO QAM pantoprazole 40 mg tablet,delayed release 40 mg PO QAM Take evening before surgery atorvastatin 10 mg tablet 10 mg PO PM lisinopril 20 mg tablet 20 mg PO QPM Other Notes If you have any questions please call us at [phone] or [phone] or [phone] or [phone]
--- NOTE | 2021-12-29 08:54 | Anesthesiology Consultation ---
Date of Service December 29, 2021 Assessment & Plan (1) Encounter for pre-operative examination: - Patient scheduled for routine annual f/u appt with cardiology prior to surgery. Patient acceptable risk for surgery pending cardiology office visit note (01/26; [facility]). - COVID screening: Per assessment on 12/29: No known COVID-19 positive contacts or current COVID-19 related symptoms. Travel screen negative. Surgeon arranging preop COVID testing. Awaiting results. - S/P Right knee poly-exchange (03/02/21): SAB at L3/4 (x1 attempt) + PNB at [facility]. No issues per post-op anesthesia progress note. Chart Review Chart Review: Patient seen in Pre Admission Testing Teaching & Discussion Pre-Anesthesia Teaching/Discussion Notes: Instructed NPO after midnight before surgery,except medications with 15 cc of water. Medication instructions provided according to the PAT guidelines. History Surgery Operation Date: 01/31/22 12:15 Proposed Procedures p Left Total Knee Arthroplasty - Johan Whalen MD Height/Weight Height: 5 ft 9 in Weight: 98.4 kg Allergies Allergy/AdvReac Type Severity Reaction Status Date / Time No Known Allergies Allergy Verified 12/26/21 11:24 Medications Home Medications Medication Instructions Recorded Confirmed Last Taken amoxicillin 500 mg tablet 500 mg PO UD PRN 07/31/18 12/26/21 Unknown atorvastatin 10 mg tablet 10 mg PO PM 07/31/18 12/26/21 03/01/21 03:45 levothyroxine 125 mcg tablet 125 mcg PO QAM 07/31/18 12/26/21 03/02/21 03:45 lisinopril 20 mg tablet 20 mg PO QPM 07/31/18 12/26/21 03/01/21 18:00 lisinopril 20 1 tab PO QAM 07/31/18 12/26/21 03/01/21 05:30 mg-hydrochlorothiazide 25 mg tablet multivitamin 1 tab PO QAM 07/31/18 12/26/21 03/01/21 05:30 pantoprazole 40 mg tablet,delayed 40 mg PO QAM 07/31/18 12/26/21 03/01/21 05:30 release vitamin B complex 1 tab PO QAM 07/31/18 12/26/21 03/01/21 05:30 Past Medical History Medical History Bradycardia Diverticular disease GERD (gastroesophageal reflux disease) controlled Hearing deficit B/L DEWITT Hyperlipemia Borderline Hypertension Hypothyroidism NSVT (nonsustained ventricular tachycardia) 1 year ago, follows with [facility] cardio Osteoarthritis Exercise / Class Metabolic Activity II 4-5 Yardwork/Stairs/Walk up hill Past Family History Family History Uncle Family history of diabetes mellitus Past Surgical History Surgical History H/O knee surgery Right knee poly-exchange (03/02/21): SAB at L3/4 (x1 attempt) + PNB at [facility]. No issues per post-op anesthesia progress note. History of appendectomy History of colectomy 2011- inches removed per patient, 2/2 diverticulitis History of colonoscopy History of surgery on arm Right History of tonsillectomy History of total knee replacement Right S/P cubital tunnel release R/L Past Anesthesia History No Hx of Anesthesia Complications and No Family Hx of Anesthesia Complications History of PONV No Hx of PONV and No Hx of Motion Sickness Social History Smoking Status: Never smoker tobacco type: smokeless tobacco Do You Dip or Chew Tobacco: Yes (1 can/2 days > advised none DOS) Hx Alcohol Use: Yes Alcohol type: beer alcohol intake frequency: 0-2 drinks per day (2 beers/day) Hx Substance Use: No substance use type: does not use Review of Systems Patient denies chest pain, shortness of breath, dyspnea on exertion, fever, chills, cough, wheezing, palpitations. Physical Exam Vital Signs VITALS BP 145/78 P 47 TEMP 98.0 SP02 95%RA RESP 18 PHYSICAL Full cervical extension range of motion. Full TMJ range of motion. TMD 3.5 finger breaths Mallampati Score 2 Dentition: missing molar, + crowns Lungs: clear throughout to auscultation Cardiac: bradycardic, regular rhythm, no murmurs noted Spine: normal Carotid arteries: negative bruit Extremities: no edema Lab Results Anesthesia Preop Results Results Anesthesia Widget: WBC 5.64 K/uL (4.8-10.8) 12/29/21 Hgb 14.8 g/dL (14.0-18.0) 12/29/21 Hct 42.7 % (42-52) 12/29/21 Plt 244 K/uL (130-400) 12/29/21 Na 139 mmol/L (136-145) 12/29/21 K 4.9 mmol/L (3.5-5.1) 12/29/21 Cl 103 mmol/L (98-107) 12/29/21 CO2 31 mmol/L (21-32) 12/29/21 BUN 19 mg/dl (6-23) 12/29/21 Creat 0.89 mg/dl (0.6-1.4) 12/29/21 Glucose Level 130 mg/dl (70-99(Fasting)) H 12/29/21 PT 10.9 Seconds (9.0-12.0) 12/29/21 PTT 25.7 Seconds (21.0-31.0) 12/29/21 INR 1.0 (0.9-1.1) 12/29/21 HA1c 5.8 % (4.5-5.6) H 12/29/21 Urine Color Dark Yellow 12/29/21 Urine Appearance Clear (Clear) 12/29/21 Urine pH 5.0 (4.5-7.5) 12/29/21 Urine Specific [place] 1.017 (1.000-1.030) 12/29/21 Urine Protein Negative (Negative) 12/29/21 Urine Glucose (UA) Negative (Negative) 12/29/21 Urine Ketones Negative (Negative) 12/29/21 Urine Blood Negative (Negative) 12/29/21 Urine Nitrite Negative (Negative) 12/29/21 Urine Bilirubin Negative (Negative) 12/29/21 Urine Urobilinogen Negative (Negative) 12/29/21 Urine Leukocyte Esterase Negative (Negative) 12/29/21 Blood Type O Positive 12/29/21 Antibody Screen NEGATIVE 12/29/21 Testing Electrocardiogram Date: 12/29/21 Marked sinus bradycardia at 44bpm. 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 Chest X-Ray Date: 12/29/21 FINDINGS: Frontal and lateral radiographs of the chest demonstrate the cardiomed iastinal silhouette to be within normal limits. The lungs are clear of alveolar opacities. There is no evidence for effusion bilaterally. There is no evidence for vascular congestion. There is no acute osseous pathology. IMPRESSION: No acute cardiopulmonary disease. Echocardiogram Date: 01/04/21 LVEF 60-64%. Grade 1 diastolic dysfunction. Mild MR/TR. Stress Test Date: 01/04/21 Type: nuclear Lexiscan nuclear cardiac stress test negative for ischemia. Gated SPECT images reveal normal myocardial thickening and wall motion. LVEF 66%. 83% MPHR. Small apical lateral perfusion defect of mild intensityremaining LV myocardial wall segments demonstrate normal perfusion. Defect is unchanged when compared to resting images and likely represents normal apical thinning. No reversibility on quantitative analysis.
--- NOTE | 2022-01-30 19:23 | History & Physical Report ---
Date of Service January 30, 2022 Assessment & Plan (1) Primary osteoarthritis of left knee: Plan: Treatment options discussed with the patient. Patient has failed conservative measures and would like to proceed with knee replacement. Risks, benefits and alternatives to surgery including but not limited to infection, DVT, pain, stiffness, need for revision surgery, damage to blood vessels, damage to nerves, PE, , were discussed with the patient and they wish to proceed. Plan on left total knee arthroplasty at [facility] on 01/31/[address] Whalen. Plan on aspirin 81mg BID for 1 mo post op for DVT prophylaxis, outpatient PT. All questions answered. F/u post op. History of Present Illness Chief Complaint: Left knee pain Primary Care Provider: Marleen Blas, DO 65 year old male with PMHx significant for HTN, bradycardia, GERD, hypothyroidism who presents with left knee pain. Pain is interfering with his da theodore activities. He has failed conservative management. He would like to proceed with surgical intervention. Patient denies headaches, sweats, fevers, chills, double vision, blurred vision, cough, sore throat, dysphagia, chest pain, sob, wheezing, n/v/d/c, numbness, tingling, fatigue, urinary symptoms, mood disorders. ROS positive for left knee pain and stiffness. Allergies Allergy/AdvReac Type Severity Reaction Status Date / Time No Known Allergies Allergy Verified 12/26/21 11:24 Home Medications Medication Instructions Recorded Confirmed Type amoxicillin 500 mg tablet 500 mg PO UD PRN 07/31/18 12/26/21 History atorvastatin 10 mg tablet 10 mg PO PM 07/31/18 12/26/21 History levothyroxine 125 mcg tablet 125 mcg PO QAM 07/31/18 12/26/21 History lisinopril 20 mg tablet 20 mg PO QPM 07/31/18 12/26/21 History lisinopril 20 1 tab PO QAM 07/31/18 12/26/21 History mg-hydrochlorothiazide 25 mg tablet multivitamin 1 tab PO QAM 07/31/18 12/26/21 History pantoprazole 40 mg tablet,delayed 40 mg PO QAM 07/31/18 12/26/21 History release vitamin B complex 1 tab PO QAM 07/31/18 12/26/21 History Past Med/Surg History Medical History Bradycardia Diverticular disease GERD (gastroesophageal reflux disease) controlled Hearing deficit B/L DEWITT Hyperlipemia Borderline Hypertension Hypothyroidism NSVT (nonsustained ventricular tachycardia) 1 year ago, follows with [facility] cardio Osteoarthritis Surgical History H/O knee surgery Right knee poly-exchange (03/02/21): SAB at L3/4 (x1 attempt) + PNB at [facility]. No issues per post-op anesthesia progress note. History of appendectomy History of colectomy 2011- inches removed per patient, 2/2 diverticulitis History of colonoscopy History of surgery on arm Right History of tonsillectomy History of total knee replacement Right S/P cubital tunnel release R/L Family History Uncle Family history of diabetes mellitus Social History Smoking Status: Never smoker Second Hand Exposure: No; Hx Alcohol Use: Yes Alcohol type: beer Hx Substance Use: No Preferred Language: [place]arag[place] Communication Ability: Effective Seating Upholsterer Required: No Beliefs That Will Affect Care: None marital status: Current Living Situation: Spouse Feels Safe at Home: Yes Assistive Devices: Glasses and Hearing Aid - Bilateral Review of Systems All systems reviewed & are unremarkable except as noted in HPI & below Physical Exam Constitutional: well developed and well nourished; no acute distress Eyes: PERRL, conjunctivae normal, anicteric sclerae ENMT: external ear and nose normal, oropharynx normal Neck: trachea midline, no thyromegaly Respiratory: normal respiratory effort, lungs clear to auscultation Cardiovascular: RRR, no murmur, no edema Musculoskeletal: Left knee: Varus alignment. Moderate effusion. Crepitation with ROM. ROM 0-125 degrees. Positive Lu's. stable to valgus and varus stress test. Tender medial joint line. Skin: no rashes, warm and dry Neurologic: patellar DTR's 2+ bilat, sensation intact Psychiatric: A+Ox3, euthymic affect Results & Data ([facility]) Diagnostic Findings Left knee: Varus alignment. Bone on bone medial compartment. Tricompartmental degenerative changes.
[~2022-01-31 09:30] MED LIST changes: +ACETAMINOPHEN 500 MG TAB PO SCH; -ATOR10TA82 PO; +BUPIVACAINE 0.5 % 5 MG/1 ML PF 10ML VIAL ONE; +CeleBREX 200 MG CAP PO SCH; +EPINEPHrine INJ 1 MG/ML AMP ONE; +FAMOTIDINE 20 MG TAB PO SCH; +GABAPENTIN 600 MG DOSE PO SCH; -LEVO125T5 PO; -LISI20TA3 PO; -LISI20TA55 PO; +LR 500ML BOLUS, THEN 15ML/HR IV SCH; +METOCLOPRAMIDE HCL 10 MG TABLET PO SCH; -MULT-506 PO; -OMEG10007 PO; -PANT40TA PO; +ROPIVACAINE 0.5% 5 MG/ML 30 ML VIAL ONE; +ROPIVACAINE 0.5% HCL/PF 150 MG, BUPIVACAINE 0.75% MPF 20 ML, EPINEPHrine 30MG/30ML (OR ... INSTIL SCH; +TRANEXAMIC ACID 1,000 MG **IV Intra-op IV SCH; +TRANEXAMIC ACID 1,000 MG **IV Pre-op IV SCH; -VITAMIN B COMPLEX PO; +ceFAZolin 2000MG 2,000 MG/15 ML SYR IV SCH; +dexAMETHasone 4 MG TAB PO SCH
[2022-01-31] MEDS ORDERED: ePHEDrine sulfate 50 MG/ML AMP IV PRN (10:21)
[2022-01-31] MEDS ORDERED: ATROPINE SULFATE 0.1 MG/ML 10ML SYR IV PRN (10:21)
[2022-01-31] MEDS ORDERED: LABETALOL HCL IV 5 MG/ML 20ML IV PRN (10:21)
[2022-01-31] MEDS ORDERED: fentaNYL citrate 100 MCG/2 ML VIAL IV PRN (10:21)
[2022-01-31] MEDS ORDERED: ONDANSETRON INJ 2 MG/ML 2 ML VIAL IV PRN ×2 (10:21→16:59)
[2022-01-31] MEDS ORDERED: MEPERIDINE HCL 25 MG/ML CARP/VIAL IV PRN (10:21)
[2022-01-31] MEDS ORDERED: PHENYLEPHRINE 100MCG/ML 5ML SYR IV PRN (10:21)
[2022-01-31] MEDS ORDERED: HYDROmorphone INJ 1 MG/ML SYRINGE IV PRN (10:21)
[2022-01-31] MEDS ORDERED: PROPOFOL IV EMULSION 10 MG/ML 20 ML VIAL IV ONE ×3 (11:39→13:16)
[2022-01-31] MEDS ORDERED: ONDANSETRON INJ 2 MG/ML 2 ML VIAL ONE (12:30)
[2022-01-31] MEDS ORDERED: MIDAZOLAM HCL 1 MG/ML 2ML VIAL ONE (12:54)
[2022-01-31] MEDS ORDERED: ORTHO JOINT ANESTHETIC ONE (13:05)
--- NOTE | 2022-01-31 13:06 | History & Physical Bridge Note ---
Date of Service January 31, 2022 History & Physical Bridge Note I have examined the patient, reviewed the History & Physical and in the interval since the performance of the History & Physical I have noted the following changes of clinical significance: no changes noted
[2022-01-31] MEDS ORDERED: ePHEDrine sulfate 50 MG/ML SYR ONE (13:16)
[2022-01-31] MEDS ORDERED: GLYCOPYRROLATE 0.2 MG/ML VIAL ONE ×2 (13:16→14:40)
--- NOTE | 2022-01-31 15:41 | Post Operative Brief Note ---
Immediate Post Op Note v1 Date of Surgery January 31, 2022 Pre & Post Diagnosis Operation Date: 01/31/22 12:15 Pre-Op Diagnosis: Left Knee Osteoarthritis Post-Op Diagnosis: Left Knee Osteoarthritis I identified the patient and participated in the time-out.: Yes Procedure Operation Date: 01/31/22 12:15 Actual Procedures p Left Total Knee Arthroplasty(Left), lateral release, application superficial wound VAC- Johan Whalen MD Surgeon Johan Whalen MD Human Resources Assistant Manager Brandon WATKINS Estimated Blood Loss 5 Findings Consistent with Post-Op Diagnosis Specimens Bone cuts Drains Hemovac Drain Anesthesia Type MAC Spinal Regional Complications none Disposition Accompanied Patient To Recovery: No Disposition: Recovery Room Overlapping Procedure I was immediately available: during the entire case.
--- NOTE | 2022-01-31 15:52 | Operative Report ---
Post Operative Report Pre & Post Diagnosis Operation Date: 01/31/22 12:15 Pre-Op Diagnosis: Left Knee Osteoarthritis Post-Op Diagnosis: Left Knee Osteoarthritis, chronic synovitis I identified the patient and participated in the time-out.: Yes Procedure Operation Date: 01/31/22 12:15 Actual Procedures p Left Total Knee Arthroplasty(Left), synovectomy, lateral release, application superficial wound VAC Johan Whalen MD Surgeon Johan Whalen MD Field Hockey And Lacrosse Coach Brandon WATKINS Estimated Blood Loss 5 Findings Consistent with Post-Op Diagnosis Specimens Bone cuts Drains 2 Hemovac Anesthesia Type MAC Spinal Regional Complications none Disposition Disposition: Recovery Room Indications 66-year male with chronic osteoarthritis in his left knee. History of previous right knee replacement. Left knee is [id number] medial compartment with a varus knee and has moderately advanced patellofemoral osteoarthritis as well. Description of Procedure The patient was taken to the operating room and anesthetized under spinal MAC regional block. Patient was placed supine on the the operating table. A pneumatic tourniquet was placed about the left upper thigh. The knee exam demonstrated moderately large effusion good range of motion with a varus knee and no instability. The involved leg was elevated exsanguinated with Esmarch bandage and the pneumatic tourniquet was raised to 325 millimeters mercury. A longitudinal incision was made across the anterior knee. Skin flaps were elevated. An incision was made into the medial retinaculum and extended up into the mid third of the quadriceps tendon and extended down to the tibial tubercle. Intra-articular findings demonstrated chronic synovitis in the suprapatellar pouch and gutters. There was [id number] medial compartment with eburnated bone. There was advanced patellofemoral osteoarthritis with large patellofemoral osteophytes. The knee was exposed by excising cruciate ligaments and menisci. The infrapatellar fat pad was resected. The fat pad over the anterior femur at the upper aspect of the articular surface was resected for placement of the component in that area. A subperiosteal peel lateral release was performed around the patella. Electrocautery synovectomy was performed in Supra patellar pouch and both gutters removing all the pathological inflamed synovial tissue. The Goff [employer] Nephew journey 2.0 posterior stabilized total knee arthroplasty system was utilized for the procedure. The custom femoral cutting guide was pinned in position. The distal femoral cut was made. The size 8, 5 in 1 cutting block was placed. The anterior posterior and chamfer cuts were made. The knee was extended and a free hand cut technique was performed to the patella. The patella with was measured and the width was reproduced using a 35 symmetrical patella component. 3 drill holes are made for the patella component pegs. The tibia was then subluxed. The custom tibial cutting block was pinned in position and the proximal tibial cut was made with the oscillating saw. Ligamentous balance was assessed and I only had to perform a minor medial post erior medial release in order to get balanced extension flexion gaps. The size 6 left tibial trial was externally rotated in line with the tibial tubercle and pinned in position. The punch for the stem was used. The femoral trial was inserted and centered the notch cutting devices were used and the collet was placed. Tibial trials were used for the insert. The size 12 posterior stabilized trial gave balanced ligaments through full range of motion. Patella tracking was assessed with range of motion. The patella tracked laterally so I did a lateral release leaving the synovium intact and the patella tracked centrally The trials were removed. The Orthomix anesthetic cocktail was injected per protocol. The cut bone surfaces and soft tissue were copiously irrigated with pulsatile lavage saline solution. The final components were cemented with Refobacin cement. The final components were Goff [employer] Nephew journey 2.0 size 8 left posterior stabilized femoral component, 6 left tibial ba seplate, 12 mm posterior stabilized polyethylene tibial insert, 35 symmetrical patella. After the cement cured, the Betadine soak was used for 3 minutes. The knee was then copiously irrigated with pulsatile lavage saline solution. 2 drains were brought out laterally connected to Hemovac. The quadriceps tendon and medial retinaculum were closed with interrupted [id number] #1 Vicryl sutures. The knee was taken through full range of motion and repair was secure. Knee range of motion was 0 through 135 degrees. the subcutaneous tissues were closed with 2-0 Vicryl sutures. The skin was closed with irvin. A dwight and Acticoat superficial wound VAC was applied. The tourniquet was let down and the patient had good capillary refill to the extremity. The patient tolerated the procedure well. My physician greenhouse assistant Brandon WATKINS participated as mail handler assistant and was integral part in all aspects of the procedure including prepping, draping, leg positioning, soft tissue retraction, instrument management and assisted in the closure ,dressings application and will participate in postoperative care the patient. I attest to the content of the Intraoperative Record and any orders documented therein. Any exceptions are noted below.
--- NOTE | 2022-01-31 16:57 | Anesthesiology Progress Note ---
Date of Service January 31, 2022 Anesthesia Post Procedure Vital Signs Vital Signs: Temp Pulse Pulse Resp BP BP Pulse Ox 01/31/22 16:40 56 L 20 132/79 96 01/31/22 16:30 97.3 F L 58 L 20 134/80 96 01/31/22 16:20 55 L 16 128/78 95 01/31/22 16:10 61 16 124/76 97 01/31/22 16:00 57 L 18 128/73 93 01/31/22 15:50 97.2 F L 66 17 112/74 97 01/31/22 09:57 97.9 F 48 L 20 149/97 H 96 Transfer of Care Handoff Completed per policy Notes Mental Status: alert / awake / arousable and participated in evaluation Patient Amnestic to Procedure: Yes Nausea / Vomiting: adequately controlled Pain: adequately controlled Airway Patency, RR, SpO2: stable & adequate BP & HR: stable & adequate Hydration State: stable & adequate Neuraxial Anesthesia: was administered and sensory block is resolving Anesthetic Complications: no major complications apparent and Pt Satisfied with anesthetic care
--- NOTE | 2022-01-31 16:58 | XRay Report ---
XR knee LT 1 or 2V routine HISTORY: 66 years-old Male Surgical Post Op left knee total joint arthroplasty COMPARISON: None TECHNIQUE: 2 views of the left knee FINDINGS: Total joint arthroplasty with patellar resurfacing. Anterior midline skin irvin are noted along wit h expected postoperative soft tissue swelling with deep tissue air. No acute fracture, dislocation or unexpected opaque foreign body. IMPRESSION: Total joint arthroplasty with expected postoperative changes. ACT 112: Negative or not required by law. The above report was generated using voice recognition software. It may contain grammatical, syntax o r spelling errors. Electronically signed by: Gigi Bowles M.D. 01/31/2022 4:57 PM
[2022-01-31] MEDS ORDERED: METOCLOPRAMIDE HCL INJ 5 MG/ML 2 ML VIAL IV PRN (16:59)
[2022-01-31] MEDS ORDERED: oxyCODONE HCL IR 5 MG TAB (IMMEDIATE RELEASE) PO PRN (16:59)
[2022-01-31] MEDS ORDERED: TAMSULOSIN HCL 0.4 MG CAP PO PRN (16:59)
[2022-01-31] MEDS ORDERED: HYDROmorphone INJ 0.5 MG/0.5 ML SYR IV PRN (16:59)
[2022-01-31] MEDS ORDERED: NALOXONE HCL 0.4 MG/1 ML VIAL/CARP IV PRN (16:59)
[2022-01-31] MEDS ORDERED: MAGNESIUM HYDROXIDE SUSP 30 ML UDC PO PRN (16:59)
[2022-01-31] MEDS ORDERED: bisacodyL 10 MG SUPP PR PRN (16:59)
--- NOTE | 2022-01-31 17:21 | Hospitalist Consultation ---
Date of Consultation January 31, 2022 Assessment & Plan (1) Primary osteoarthritis of left knee: - Pain management, bowel regimen and DVT ppx with aspirin 81 mg BID 4 weeks per the primary team - PT/OT consults, planning on outpatient therapy after discharge - Follow am CBC to monitor for acute blood loss (2) Hypertension: -May continue lisinopril, hydrochlorothiazide -BP is slightly elevated 158/86, will monitor (3) Hyperlipidemia: -Continue statin therapy with atorvastatin 10 mg (4) NSVT (nonsustained ventricular tachycardia): -History of such 1 year ago, follows with Dr. Cruz, cardiology as an outpatient (5) Bradycardia: -History of such, being followed by cardiology as an outpatient (6) Hypothyroidism: -Continue levothyroxine 125 mcg daily (7) Obesity: -BMI of 31.4, diet and exercise to be encouraged throughout hospital stay and after discharge DVT PPx: - teds, scds CODE: Full code Dispo: From home, likely to remain in the hospital x 1-2 days Thank you for involving us in the care of Mr. Mclain. If you have any questions or concerns please do not hesitate to call. At this time medicine will follow along. Supervising Physician Co-Signing Physician Notes I saw this patient with the physician neurology physician assistant, I participated in the history, physical, review of systems, and physical exam on this consult. I reviewed the medications. I formulated the assessment and plan personally with the physician neurology physician assistant and went over it with the patient. ROS-No Headache, No Visual Changes, No Nausea, No Vomiting, No Fever, No Chills, No Neck Pain or Stiffness, No Chest Pain, No Palpitations, No SOB, No YORK, No Cough, No Sputum, No Wheezing, No Abdominal Pain, No Diarrhea, No Hematemesis, No Hemoptysis, No Unexpected Weight Loss, No Flank pain, No Melena, No Hematochezia, No Frequency, No Urgency, No Burning, No Hematuria, No Rashes, No Diaphoresis. Appetite is Normal Physical Exam Gen-AAO x 3, NAD, Afebrile Head-NCAT, EOMI, PERRLA, Anicteric Sclera, No Posterior Pharyngeal Erythema Neck-Supple, No JVD, No Thyromegaly, No Masses, No LAD, No Bruits Lungs-Clear to Auscultation Bilaterally, No Rales, No Rhonchi, No Wheezing, No Crepitus Chest-No S4, +S1, +S2, No S3, No Murmurs, No Rubs, No Gallops, No Ectopy Abdomen-Soft, Bowel Sounds Present, Non Tender, Non Distended, No Hepatomegaly, No Splenomegaly, No Palpable Masses, No Rebound, No Rigidity, No Guarding Musculoskeletal-Wound Vac L Knee, Ice Pack L Knee Extremities-No Cyanosis, No Clubbing, No Edema, +SCDs Nuero-Cranial Nerves II-XII grossly intact, Motor WNL, DTRs WNL, Strength WNL, Non Focal Psych-Normal Mood History of Present Illness Reason for Consultation: Medical management Requesting Physician: Dr. Whalen Attending Physician: Johan Whalen MD History of Present Illness This is a 66 yo [employer] male with PMhx of HTN, HLD, bradycardia, NSVT 1 year ago, GERD, osteoarthritis, hypothyroidism who presents for elective Left total knee arthroplasty by Dr. Whalen. The patient is here with his present at bedside. He denies any acute complaints or concerns. He has no pain, and has minimal sensation back in his foot status post surgery at this point. He is able to slightly wiggle his second toe on the left foot. Reports he has drank a cup of coffee without any abdominal complaints, concerns, abdominal pain and had a bowel movement this morning prior to surgery. He denies any urinary complaints. Patient is planning on outpatient physical therapy after discharge. Allergies Allergy/AdvReac Type Severity Reaction Status Date / Time No Known Allergies Allergy Verified 01/31/22 10:09 Home Medications Medication Instructions Recorded Confirmed Type amoxicillin 500 mg tablet 500 mg PO UD PRN 07/31/18 01/31/22 History atorvastatin 10 mg tablet 10 mg PO PM 07/31/18 01/31/22 History levothyroxine 125 mcg tablet 125 mcg PO QAM 07/31/18 01/31/22 History lisinopril 20 mg tablet 20 mg PO QPM 07/31/18 01/31/22 History lisinopril 20 1 tab PO QAM 07/31/18 01/31/22 History mg-hydrochlorothiazide 25 mg tablet multivitamin 1 tab PO QAM 07/31/18 01/31/22 History pantoprazole 40 mg tablet,delayed 40 mg PO QAM 07/31/18 01/31/22 History release vitamin B complex 1 tab PO QAM 07/31/18 01/31/22 History Patient History Medical History (Updated 01/31/22 @ 10:23 by Avelino Langley MD) Bradycardia Diverticular disease GERD (gastroesophageal reflux disease) controlled Hearing deficit B/L [place] Hyperlipemia Borderline Hypertension Hypothyroidism NSVT (nonsustained ventricular tachycardia) 1 year ago, follows with [facility] cardio Obesity Osteoarthritis Surgical History H/O knee surgery Right knee poly-exchange (03/02/21): SAB at L3/4 (x1 attempt) + PNB at [facility]. No issues per post-op anesthesia progress note. History of appendectomy History of colectomy 2011- inches removed per patient, 2/2 diverticulitis History of colonoscopy History of surgery on arm Right History of tonsillectomy History of total knee replacement Right S/P cubital tunnel release R/L Family History Uncle Family history of diabetes mellitus Social History Smoking Status: Never smoker Second Hand Exposure: No; Do You Dip or Chew Tobacco: Yes (1 can/2 days > advised none DOS); Tobacco Cessation Education Requested by Patient: No Hx Alcohol Use: Yes Alcohol type: beer Hx Substance Use: No Preferred Language: Ukrainian Communication Ability: Effective [employer] Level Five Required: No Beliefs That Will Affect Care: None marital status: Current Living Situation: Spouse Other Information That Helps Us Care for You: No Feels Safe at Home: Yes Safety Concerns: Feels Safe At This Time Assistive Devices: Glasses and Hearing Aid - Bilateral Assistive Devices Comment: WEAR GLASSES FOR DRIVING Review of Systems Review of Systems: Constitutional: No fever, sweats or chills Eyes: No diplopia, no worsening or blurred vision ENT: normal hearing, no trouble swallowing Respiratory: No cough, sputum, dyspnea at rest or on exertion Cardiovascular: No chest pain, tightness or palpitations Abdomen: No pain, nausea, vomiting, diarrhea or constipation Musculoskeletal: No joint pain, calf pain, swelling Neurologic: No weakness, numbness/tingling, or balance problems, as per HPI with numbness status post surgical procedure. Psychiatric: No anxiety or depression Skin: No rash or itch Physical Exam Physical Exam: General: awake, alert, no apparent distress Head: Normocephalic, atraumatic ENT: PERRL, EOMI, no pharyngeal exudate, mucous membranes moist Chest: Clear to auscultation, on room air, no adventitious breath sounds Cardiac: Regular rate and rhythm, no murmur, no JVD, normal peripheral pulses, good capillary refill Abdominal: NABS x 4 quadrants, soft, nondistended, nontender to palpation, no rebound or guarding Extremities: Left knee with wound VAC in place, Martin wrap, ice pack, and able to wiggle second toe on the left foot. Dullness to sensation of light touch in BLE. Normal inspection, no peripheral edema or erythema, calfs nontender to palpation Psych: Normal mood and affect Neuro: AAO x 3, strength intact bilaterally and rated 5/5, no motor deficits, speech is clear, no peripheral sensory deficits Results & Data Results & Data ([facility]) Vital Signs (Past 12 Hours) Vital Signs Temp Pulse Pulse Resp BP BP Pulse Ox 01/31/22 17:01 36.4 C L 63 16 145/74 H 98 01/31/22 16:40 56 L 20 132/79 96 01/31/22 16:30 36.3 C L 58 L 20 134/80 96 01/31/22 16:20 55 L 16 128/78 95 01/31/22 16:10 61 16 124/76 97 01/31/22 16:00 57 L 18 128/73 93 01/31/22 15:50 36.2 C L 66 17 112/74 97 01/31/22 09:57 36.6 C 48 L 20 149/97 H 96 Laboratory Results 01/31/22 09:48 SARS-CoV-2, RNA, NAAT NEGATIVE Diagnostic Findings 01/31/22 09:48 SARS-CoV-2, RNA, NAAT NEGATIVE
[2022-01-31] MEDS: SODIUM CHLORIDE 0.9% 1000ML 1,000 ML IV SCH (17:49)
[2022-01-31] MEDS: ASPIRIN 81 MG ECTAB PO SCH (21:46)
[2022-01-31] MEDS: CeleBREX 200 MG CAP PO SCH (21:46)
[2022-01-31] MEDS: ATORVASTATIN 10 MG TAB PO SCH (21:46)
[2022-01-31] MEDS: SENNA 8.6 MG TAB PO SCH (21:46)
[2022-01-31] MEDS: ACETAMINOPHEN 500 MG TAB PO SCH (21:47)
[2022-01-31] MEDS: ceFAZolin 2000MG 2,000 MG/15 ML SYR IV SCH (21:48)
[2022-01-31] MEDS: DOCUSATE SODIUM 100 MG CAP PO SCH (21:48)
[2022-02-01] MEDS: SODIUM CHLORIDE 0.9% 1000ML 1,000 ML IV SCH (03:09)
[2022-02-01] MEDS: LEVOTHYROXINE SODIUM 125 MCG TABLET PO SCH (05:54)
[2022-02-01] MEDS: ceFAZolin 2000MG 2,000 MG/15 ML SYR IV SCH (05:54)
[2022-02-01] MEDS: ACETAMINOPHEN 500 MG TAB PO SCH ×3 (05:56→21:38)
[2022-02-01 08:17] LABS: Hemoglobin 13.3 g/dL (14.0-18.0); Mean Corpuscular Hemoglobin 30.4 pg (25-34); Mean Corpuscular Volume 86.8 fL (80-100); Mean Platelet Volume 10.5 fL (7.4-10.4); Platelet Count 242 K/uL (130-400); RDW Coefficient of Variation 13.5 % (11.5-14.5); RDW Standard Deviation 43.1 fL (36.4-46.3); Red Blood Count 4.38 M/uL (4.7-6.1); White Blood Count 12.15 K/uL (4.8-10.8)
[2022-02-01 08:35] LABS: BUN Creatinine Ratio 16.5 (10-20); Calcium 8.9 mg/dl (8.5-10.1); Creatinine Clr Calc Pharmacy 88.2 ml/min; Est GFR (African American) 95.2 ml/min; Est GFR (Non-African American) 82.2 ml/min; Potassium 4.1 mmol/L (3.5-5.1)
[2022-02-01] MEDS ORDERED: NON-FORMULARY MEDICATION (Multivitamin Tablet) PO SCH (09:00)
[2022-02-01] MEDS: MULTIVITAMIN TAB PO SCH (09:21)
[2022-02-01] MEDS: PANTOprazole 40 MG TAB PO SCH (09:21)
[2022-02-01] MEDS: DOCUSATE SODIUM 100 MG CAP PO SCH ×2 (09:21→20:43)
[2022-02-01] MEDS: ASPIRIN 81 MG ECTAB PO SCH ×2 (09:22→20:42)
[2022-02-01] MEDS: VITAMIN B COMPLEX TAB PO SCH (09:23)
[2022-02-01] MEDS: CeleBREX 200 MG CAP PO SCH ×2 (09:23→20:42)
[2022-02-01] MEDS: LISINOPRIL/HCTZ 20/25MG 1 TAB PO SCH (09:23)
--- NOTE | 2022-02-01 10:08 | Orthopedic Progress Note ---
Date of Service February 01, 2022 Assessment & Plan (1) Primary osteoarthritis of left knee: Plan: Postop day 1 left total knee -PT/OT -Pain management as written -DVT prophylaxis, aspirin 81 mg twice daily, SCDs, teds -AM labs: Hemoglobin at 13.3 this morning. Mild leukocytosis likely reactive, patient asymptomatic. -Discharge planning plan on discharge home with home health PT when stable. Plan on discharge likely tomorrow. Admission and Anticipated Discharge Date Admission Date: January 31, 2022 Subjective Patient is sitting in his bedside chair. He is doing well this morning. Pain is well controlled. No other complaints. Review of Systems Review of Systems: All systems reviewed & are unremarkable except as noted in Subjective Physical Exam Physical Exam: Left knee: Dressing is clean, dry, intact. Hemovac on suction. Sarah intact. Toes are mobile with good dorsiflexion. No calf tenderness. Negative straight leg raise. Distally neurovascular status and sensation Constitutional: WD/WN, vitals as above Results & Data ([facility]) Vital Signs (Past 12 Hours) Vital Signs Temp Pulse Resp BP Pulse Ox 02/01/22 09:20 65 152/80 H 02/01/22 07:19 36.4 C L 58 L 16 167/80 H 97 02/01/22 03:08 36.4 C L 63 18 159/89 H 96 01/31/22 22:54 36.4 C L 66 18 126/76 94 Laboratory Results Lab Results 01/31/22 02/01/22 02/01/22 Range/Units 09:48 07:10 07:10 WBC 12.15 H (4.8-10.8) K/uL RBC 4.38 L (4.7-6.1) M/uL Hgb 13.3 L (14.0-18.0) g/dL Hct 38.0 L (42-52) % MCV 86.8 (80-100) fL MCH 30.4 (25-34) pg MCHC 35.0 (32-36) g/dL RDW Std Deviation 43.1 (36.4-46.3) fL RDW Coeff of Jing 13.5 (11.5-14.5) % Plt Count 242 (130-400) K/uL MPV 10.5 H (7.4-10.4) fL Sodium 135 L (136-145) mmol/L Potassium 4.1 (3.5-5.1) mmol/L Chloride 103 (98-107) mmol/L Carbon Dioxide 26 (21-32) mmol/L Anion Gap 6 (3-11) BUN 16 (6-23) mg/dl Creatinine 0.97 (0.6-1.4) mg/dl Est Cr Clr Drug Dosing 88.2 ml/min Est GFR ( Amer) 95.2 ml/min Est GFR (Non-Af Amer) 82.2 ml/min BUN/Creatinine Ratio 16.5 (10-20) Glucose 149 H (70-99(Fasting)) mg/dl Calcium 8.9 (8.5-10.1) mg/dl SARS-CoV-2, RNA, NAAT NEGATIVE (NEGATIVE)
--- NOTE | 2022-02-01 16:01 | Hospitalist Progress Note ---
Date of Service February 01, 2022 Assessment & Plan (1) Primary osteoarthritis of left knee: Plan: - Pain management, bowel regimen, PT OT and DVT ppx with aspirin 81 mg BID 4 weeks per the primary team - PT/OT consults, planning on outpatient therapy after discharge -Elevated WBC likely secondary to preop dexamethasone use. CBC in AM. Was for acute blood loss anemia. (2) Hypertension: Plan: -May continue lisinopril, hydrochlorothiazide -BP is slightly elevated, expect to improve with improvement in his acute status. (3) Hyperlipidemia: Plan: -Continue statin therapy (4) NSVT (nonsustained ventricular tachycardia): Plan: -History of such 1 year ago, follows with Dr. Cruz, cardiology as an outpatient (5) Bradycardia: Plan: -History of such, being followed by cardiology as an outpatient (6) Hypothyroidism: Plan: -Continue levothyroxine 125 mcg daily (7) Obesity: Plan: -BMI of 31.4, diet and exercise to be encouraged throughout hospital stay and after discharge DVT PPx: - teds, scds CODE: Full code Dispo: From home, likely to remain in the hospital x 1days Thank you for involving us in the care of Mr. Mclain. If you have any questions or concerns please do not hesitate to call. At this time medicine will follow along. Admission and Anticipated Discharge Date Admission Date: January 31, 2022 Subjective Patient seen and examined at bedside as a follow-up of left knee osteoarthritis status post left total knee arthroplasty 01/31/[address] Whalen Patient was sitting up in bed, on room air, NAD, no new acute events overnight. Patient reports eating okay, pain under control, reports working with physical therapy well. Patient reports moving gas but no bowel movement so far. Patient denies any chest pain/headache/dizziness/cough/belly pain/other review of symptoms. Physical Exam Physical Exam: GENERAL: Alert and oriented x3. NAD, on RA. Obese. HEENT: No pallor, no icterus. Pupils equal, round and reactive to light. Oral mucosa moist. NECK: No JVD, no neck masses. HEART: S1 and S2 heard. Regular rate and rhythm. No murmur, no gallop. RESPIRATORY SYSTEM: Normal AP diameter. No accessory muscle use. No wheezing, no crackles. ABDOMEN: Soft, bowel sounds present, nontender, no distention. CENTRAL NERVOUS SYSTEM: No facial droop. Speech is clear. Obeys simple commands. Moves extremities. EXTREMITIES: No edema, no erythema seen. Left knee with clean dressing without soakage, serosanguineous collection minimal in drain noted. Distal neurovascular status WNL. Results & Data Results & Data ([facility]) Vital Signs (Past 12 Hours) Vital Signs Temp Pulse Resp BP Pulse Ox 02/01/22 15:41 36.4 C L 50 L 16 162/85 H 98 02/01/22 11:16 36.6 C 64 16 166/74 H 98 02/01/22 09:20 65 152/80 H 02/01/22 07:19 36.4 C L 58 L 16 167/80 H 97
[2022-02-01] MEDS: ATORVASTATIN 10 MG TAB PO SCH (20:42)
[2022-02-01] MEDS: SENNA 8.6 MG TAB PO SCH (20:43)
[2022-02-01] MEDS ORDERED: lisinopril 20 MG TAB PO SCH (21:00)
[2022-02-02] MEDS: ACETAMINOPHEN 500 MG TAB PO SCH (06:02)
[2022-02-02] MEDS: LEVOTHYROXINE SODIUM 125 MCG TABLET PO SCH (06:02)
--- NOTE | 2022-02-02 07:19 | Orthopedic Progress Note ---
Date of Service February 02, 2022 Assessment & Plan (1) Primary osteoarthritis of left knee: Plan: Postop day 2 left total knee -PT/OT -Pain management as written -DVT prophylaxis, aspirin 81 mg twice daily, SCDs, teds -AM labs: CBC pending -Discharge planning plan on discharge home with home health PT when stable. Plan on discharge home today. Admission and Anticipated Discharge Date Admission Date: January 31, 2022 Subjective Patient is postop day #2. He is doing very well. Pain is well controlled. Denies chest pain, shortness of breath, lightheadedness, dizziness. Has Hemovac was removed this morning. Hoping to go home today. Review of Systems Review of Systems: All systems reviewed & are unremarkable except as noted in Subjective Physical Exam Physical Exam: Left knee: Dressing is clean, dry, intact. Hemovac site dressing intact dwight intact. Toes are mobile with good dorsiflexion. No calf tenderness. Negative straight leg raise. Distally neurovascular status and sensation Constitutional: WD/WN, vitals as above Results & Data ([facility]) Vital Signs (Past 12 Hours) Vital Signs Temp Pulse Resp BP Pulse Ox 02/02/22 06:36 36.6 C 48 L 18 142/84 H 96 02/01/22 22:09 36.6 C 48 L 18 127/69 97
[2022-02-02] MEDS: DOCUSATE SODIUM 100 MG CAP PO SCH (07:41)
[2022-02-02] MEDS: ASPIRIN 81 MG ECTAB PO SCH (07:42)
[2022-02-02] MEDS: VITAMIN B COMPLEX TAB PO SCH (07:43)
[2022-02-02] MEDS: LISINOPRIL/HCTZ 20/25MG 1 TAB PO SCH (07:43)
[2022-02-02] MEDS: PANTOprazole 40 MG TAB PO SCH (07:43)
[2022-02-02] MEDS: CeleBREX 200 MG CAP PO SCH (07:43)
[2022-02-02] MEDS: MULTIVITAMIN TAB PO SCH (07:43)
[2022-02-02 07:50] LABS: Hematocrit (blood only) 33.5 % (42-52); Hemoglobin 11.8 g/dL (14.0-18.0); Mean Corpuscular Hemoglobin 31.1 pg (25-34); Mean Corpuscular Hgb Conc 35.2 g/dL (32-36); Mean Corpuscular Volume 88.4 fL (80-100); Mean Platelet Volume 10.4 fL (7.4-10.4); Platelet Count 212 K/uL (130-400); RDW Standard Deviation 45.5 fL (36.4-46.3); Red Blood Count 3.79 M/uL (4.7-6.1); White Blood Count 11.32 K/uL (4.8-10.8)
--- NOTE | 2022-02-02 15:42 | Hospitalist Progress Note ---
Date of Service February 02, 2022 Assessment & Plan (1) Primary osteoarthritis of left knee: Plan: #. Postoperative acute blood loss anemia - Pain management, bowel regimen, PT OT and DVT ppx with aspirin 81 mg BID 4 weeks per the primary team - PT/OT consults, planning on outpatient therapy after discharge -Elevated WBC likely secondary to preop dexamethasone use. No signs and symptoms of infection. -Likely postoperative acute blood loss anemia, hemoglobin dropped to 11.8, CBC in a week time upon discharge. (2) Hypertension: Plan: -May continue lisinopril, hydrochlorothiazide -BP is slightly elevated, expect to improve with improvement in his acute status. (3) Hyperlipidemia: Plan: -Continue statin therapy (4) NSVT (nonsustained ventricular tachycardia): Plan: -History of such 1 year ago, follows with Dr. Cruz, cardiology as an outpatient (5) Bradycardia: Plan: -History of such, being followed by cardiology as an outpatient (6) Hypothyroidism: Plan: -Continue levothyroxine 125 mcg daily (7) Obesity: Plan: -BMI of 31.4, diet and exercise to be encouraged throughout hospital stay and after discharge DVT PPx: - teds, scds CODE: Full code Dispo: From home, likely to remain in the hospital x 1days Thank you for involving us in the care of Mr. Mclain. If you have any questions or concerns please do not hesitate to call. At this time medicine will follow along. Admission and Anticipated Discharge Date Admission Date: January 31, 2022 Subjective Patient seen and examined at bedside as a follow-up of left knee osteoarthritis status post left total knee arthroplasty 01/31/[address] Whalen Patient was sitting up in bed, on room air, NAD, no new acute events overnight. Patient reports eating okay, pain under control, has moved bowel. Patient denies any chest pain/headache/dizziness/cough/belly pain/other review of symptoms. Physical Exam Physical Exam: GENERAL: Alert and oriented x3. NAD, on RA. Obese. HEENT: No pallor, no icterus. Pupils equal, round and reactive to light. Oral mucosa moist. NECK: No JVD, no neck masses. HEART: S1 and S2 heard. Regular rate and rhythm. No murmur, no gallop. RESPIRATORY SYSTEM: Normal AP diameter. No accessory muscle use. No wheezing, no crackles. ABDOMEN: Soft, bowel sounds present, nontender, no distention. CENTRAL NERVOUS SYSTEM: No facial droop. Speech is clear. Obeys simple commands. Moves extremities. EXTREMITIES: No edema, no erythema seen. Left knee with clean dressing without soakage. Distal neurovascular status WNL. Results & Data Results & Data ([facility]) Vital Signs (Past 12 Hours) Vital Signs Temp Pulse Pulse Resp BP Pulse Ox 02/02/22 08:38 36.6 C 56 L 48 L 18 142/84 H 96 02/02/22 06:36 36.6 C 48 L 18 142/84 H 96
--- NOTE | 2022-02-06 19:24 | Discharge Summary ---
Date of Service February 06, 2022 Admission HPI Per Admitting Provider 65 year old male with PMHx significant for HTN, bradycardia, GERD, hypothyroidism who presents with left knee pain. Pain is interfering with his daily activities. He has failed conservative management. He would like to pr oceed with surgical intervention. Patient denies headaches, sweats, fevers, chills, double vision, blurred vision, cough, sore throat, dysphagia, chest pain, sob, wheezing, n/v/d/c, numbness, tingling, fatigue, urinary symptoms, mood disorders. ROS positive for left knee pain and stiffness. Admission Exam Per Admitting Provider Constitutional: well developed and well nourished; no acute distress Eyes: PERRL, conjunctivae normal, anicteric sclerae ENMT: external ear and nose normal, oropharynx normal Neck: trachea midline, no thyromegaly Respiratory: normal respiratory effort, lungs clear to auscultation Cardiovascular: RRR, no murmur, no edema Musculoskeletal: Left knee: Varus alignment. Moderate effusion. Crepitation with ROM. ROM 0-125 degrees. Positive Lu's. stable to valgus and varus stress test. Tender medial joint line. Skin: no rashes, warm and dry Neurologic: patellar DTR's 2+ bilat, sensation intact Psychiatric: A+Ox3, euthymic affect Principal Diagnosis Left knee osteoarthritis Discharge Exam Left knee: Dressing is clean, dry, intact. Hemovac site dressing intact dwight intact. Toes are mobile with good dorsiflexion. No calf tenderness. Negative straight leg raise. Distally neurovascular status and sensation Constitutional WD/WN, vitals as above Discharge Data Allergies Allergy/AdvReac Type Severity Reaction Status Date / Time No Known Allergies Allergy Verified 01/31/22 10:09 Consultations 01/29/22 10:51 Consult Hospitalist Routine Procedures Performed Operation Date: 01/31/22 12:15 Actual Procedures p Left Total Knee Arthroplasty(Left) - Johan Whalen MD Ordered Studies 01/31/22 05:00 US - OR guided needle placemen Routine Hospital Course (1) Primary osteoarthritis of left knee: Postop day 2 left total knee -PT/OT -Pain management as written -DVT prophylaxis, aspirin 81 mg twice daily, SCDs, teds -AM labs: CBC pending -Discharge planning plan on discharge home with home health PT when stable. Plan on discharge home today. Postop day 1 left total knee -PT/OT -Pain management as written -DVT prophylaxis, aspirin 81 mg twice daily, SCDs, teds -AM labs: Hemoglobin at 13.3 this morning. Mild leukocytosis likely reactive, patient asymptomatic. -Discharge planning plan on discharge home with home health PT when stable. Plan on discharge likely tomorrow. Lab Results 01/31/22 02/01/22 02/01/22 Range/Units 09:48 07:10 07:10 WBC 12.15 H (4.8-10.8) K/uL RBC 4.38 L (4.7-6.1) M/uL Hgb 13.3 L (14.0-18.0) g/dL Hct 38.0 L (42-52) % MCV 86.8 (80-100) fL MCH 30.4 (25-34) pg MCHC 35.0 (32-36) g/dL RDW Std Deviation 43.1 (36.4-46.3) fL RDW Coeff of Jing 13.5 (11.5-14.5) % Plt Count 242 (130-400) K/uL MPV 10.5 H (7.4-10.4) fL Sodium 135 L (136-145) mmol/L Potassium 4.1 (3.5-5.1) mmol/L Chloride 103 (98-107) mmol/L Carbon Dioxide 26 (21-32) mmol/L Anion Gap 6 (3-11) BUN 16 (6-23) mg/dl Creatinine 0.97 (0.6-1.4) mg/dl Est Cr Clr Drug Dosing 88.2 ml/min Est GFR ( Amer) 95.2 ml/min Est GFR (Non-Af Amer) 82.2 ml/min BUN/Creatinine Ratio 16.5 (10-20) Glucose 149 H (70-99(Fasting)) mg/dl Calcium 8.9 (8.5-10.1) mg/dl SARS-CoV-2, RNA, NAAT NEGATIVE (NEGATIVE) 02/02/22 Range/Units 07:20 WBC 11.32 H (4.8-10.8) K/uL RBC 3.79 L (4.7-6.1) M/uL Hgb 11.8 L (14.0-18.0) g/dL Hct 33.5 L (42-52) % MCV 88.4 (80-100) fL MCH 31.1 (25-34) pg MCHC 35.2 (32-36) g/dL RDW Std Deviation 45.5 (36.4-46.3) fL RDW Coeff of Jing 14.0 (11.5-14.5) % Plt Count 212 (130-400) K/uL MPV 10.4 (7.4-10.4) fL Sodium (136-145) mmol/L Potassium (3.5-5.1) mmol/L Chloride (98-107) mmol/L Carbon Dioxide (21-32) mmol/L Anion Gap (3-11) BUN (6-23) mg/dl Creatinine (0.6-1.4) mg/dl Est Cr Clr Drug Dosing ml/min Est GFR ( Amer) ml/min Est GFR (Non-Af Amer) ml/min BUN/Creatinine Ratio (10-20) Glucose (70-99(Fasting)) mg/dl Calcium (8.5-10.1) mg/dl SARS-CoV-2, RNA, NAAT (NEGATIVE) Total Time Total Time Spent Total Time Spent (In Minutes): 20 Discharge Plan Discharge Items Patient Disposition: Home - Home Health Services Reason For Visit: Left Knee Osteoarthritis Discharge Diagnosis: Left knee osteoarthritis Activity: Per Instructions section Non-emergency contact: Surgeon Call non-emergency contact if: you have any medication questions, your pain is not controlled, your pain is concerning for you, you have a fever, your temperature is above 101, your wound has increased redness and your wound has increased drainage Follow-up/Referrals: Marleen Blas DO [Primary Care Provider] - Diet: Regular Addtl Attending Provider Instructions: ACTIVITY RECOMMENDATIONS: SELF CARE INSTRUCTIONS AFTER TOTAL KNEE REPLACEMENT A. You may need to continue a physical therapy program after discharge from the hospital. There are several options available to you. Your doctor will assist you in selecting the best one for you. 1. An out-patient facility 2 to 3 times a week for therapy or home therapy. 2. Continue working on all exercises taught to you in the hospital. Your goals should be to increase bending of your knee to 90 degrees and beyond and to fully straighten your knee. B. You may progress at your own pace from walking with a walker or crutches to a cane; then to no assistive devices. C. Make walking a part of your daily routine. Be up as much as comfortable with rest periods throughout the day. Rest with leg elevation is very important. Use the ice wrap frequently for the first 3-4 weeks. D. There are no restrictions on activities. You may ride in a car, shop, participate in weight and balance control agent and all social activities. E. Wear the long elastic stockings (ANGÉLICA hose) 20 hours a day for 2 weeks after surgery. They can be removed several times a day for laundering and for a bath. F. You may shower, no tub baths until cleared by your doctor. SPECIAL CARE INSTRUCTIONS: VERY IMPORTANT TO READ AND REVIEW A. There are a few signs you need to watch for after you are home. Call [facility] if you notice any of the followin. Increased severe knee pain. Some pain is expected especially when you exercise. 2. Increased swelling in your leg or knee; pain or swelling of the calf muscle in either lower leg. 3. Any fluid drainage from the incision. 4. Shortness of breath or chest pain. B. Please call [facility] at if you have any concerns or questions about your operation or recovery. The doctor or his nurse will return your call promptly. C. You must take antibiotics before dental work, bladder, bowel or other surgery. Your doctor will provide you with a permanent care to carry describing this precaution. IMPORTANT: * REMEMBER TO TAKE ASPIRIN, 81 MG, TWICE DAILY FOR 4 WEEKS UNLESS OTHERWISE DIRECTED. THIS IS YOUR BLOOD THINNER. * HIGH RISK PATIENTS MAY BE PRESCRIBED A STRONGER BLOOD THINNER. THIS WILL BE PROVIDED AT DISCHARGE. * CALL IF INCREASED PAIN, REDNESS, DRAINAGE OR FEVER GREATER THAT 101. * WEAR ANGÉLICA HOSE 20 HOURS PER DAY FOR 2 WEEKS. This is a large suction dressing covering your incision. This will help pull any excess drainage from the wound and allow your incision to heal properly. You may shower with this if you can keep the unit outside of the shower. If any bleeding or leakage is noted please call your doctor's office. This will remain on your incision for 7 days and then should be removed. This can be done yourself or by the home nursing staff if applicable. The entire unit is disposable once removed. Once removed, keep incision clean and dry. If redness or drainage is noted, please call your surgeon. IF INCISION IS LEAKING THROUGH DRESSING, CALL THE OFFICE . FOLLOW UP VISIT: If appointment is not already scheduled: Please call [facility] to make a follow-up appointment for 2 weeks after your surgery at . Stand-Alone Forms: [facility], Smoking Cessation Medications and DC Order Prescriptions: New acetaminophen [Tylenol Extra Strength] 500 mg Tablet 1,000 mg PO Q8 Qty: 60 RF: 0 celecoxib [Celebrex] 200 mg Capsule 200 mg PO BID Qty: 60 RF: 0 aspirin 81 mg Tablet,Delayed Release (Dr/Ec) 81 mg PO BID Qty: 60 RF: 0 oxycodone 5 mg Tablet 5 - 10 mg PO .Q4h-6h MDD 6 PRN (Reason: pain) Qty: 30 RF: 0 Continued multivitamin Tablet 1 tab PO QAM RF: 0 atorvastatin 10 mg Tablet 10 mg PO PM RF: 0 lisinopril 20 mg Tablet 20 mg PO QPM RF: 0 amoxicillin 500 mg Tablet 500 mg PO UD PRN (Reason: PRIOR TO DENTAL PROCEDURES ) RF: 0 pantoprazole 40 mg Tablet,Delayed Release (Dr/Ec) 40 mg PO QAM RF: 0 levothyroxine 125 mcg Tablet 125 mcg PO QAM RF: 0 lisinopril-hydrochlorothiazide 20-25 mg Tablet 1 tab PO QAM RF: 0 vitamin B complex Tablet 1 tab PO QAM RF: 0 Discharge Orders: Discharge Order (Routine); Ordered 02/02/22 Ordered By: Ephraim Bain Admission Data Admit Date/Time: 01/31/22 15:52 Attending Provider: Johan Whalen Admit Provider: Johan Whalen Primary Care Provider: Marleen Blas Other Providers: Araseli Coker ; [facility] Other Interventions: Discharge Summary Assessment (RN) Last Done: 02/02/22 08:38
== END 2022-02-02 10:27 | disposition home health service (06) ==
LOC: 3E 09:30 → ASU 09:30